=== PATIENT | female | born 1935 | race Caucasian/White ===

== ENCOUNTER → 2019-01-04 | Outpatient (REF) | payer MEDICARE ==
[~2019-01-04] MED LIST: ADVAIR DISK1 IN; ALBUTEROL S2.5 MG/.5 IN; AMLODIPINE10 MG PO; AMLODIPINE2.5 MG PO; AMLODIPINE5 MG PO; AMOXICILLIN/PO500 MG OR; ASPIRIN 8181 MG PO; ASPIRIN325 MG PO; ATORVASTATI80 MG/TAB PO; AUGMENTIN875TAB PO; AZITHROMYCIN250 MG PO; BL ADULT ASA81 MG PO; BYSTOLIC10 MG; BYSTOLIC10 MG OR; BYSTOLIC20 MG PO; CALCIUM600 M1 PO; CENTRUM; CENTRUM CARDIO PO; CENTRUM OR; CHLORTHALID25 MG PO; CLARITIN10 MG PO; COMBIVENT IN; CRANBERRY500 MG OR; CRANBERRY500 MG PO; CRESTOR20 MG; CRESTOR20 MG PO; CYANOCOBALAM1000 MCG IJ; ENALAPRIL10 MG; ENALAPRIL10 MG PO; FLAXSEED OIL1200 MG OR; FLUARIX QUADRIV1 IN1 IM; FLUARIX QUADRIV1 INJ IM; FLUTICASONE50 MCG; FLUZONE SPLT1 M1 IM; FLUZONE1 M1 IM; FUROSEMIDE20 MG PO; GLUTAMINE500 MG OR; HYDROCHLOR12.5 MG/CA PO; HYDROCHLOROT12.5 MG PO; HYDROCHLOROTH12.5 MG PO; ISOSORB MONO30 MG OR; ISOSORB MONO30 MG PO; KLOR-CON M2020 MEQ PO; KLS OMEPRAZOLE20 MG PO; L-CARNITINE500 M1 OR; LISINOPRIL10 MG PO; LOVAZA1 GM OR; MEDDOSEPAK PO; MELOXICAM7.5 MG PO; MYLANT1 OR; NIFEDICAL XL60 MG OR; NIFEDIPINE60 M1 PO; OMEGA 31000 MG PO; OMEPRAZOLE20 MG PO; OSTEO BI-FL1 PO; OSTEO BI-FLE OR; PLAVIX75 MG PO; PREMARIN0.3 MG PO; PROAIR HFA IN; SPIRIVA IN; TEKTURNA300 MG OR; TEKTURNA300 MG PO; TRIAMCINOLON0.11 EX; VASOTEC10 MG PO; VITAMIN B-121000 MC1 SL; VITAMIN D2000 UNIT OR; VITAMIN D31000 UNI1 OR; ZITHROMAX500 MG PO; ZOCOR20 M1 PO; ZOSTAVAX IM; [UNRECOGNIZED DRUG - OTHER] OR; [UNRECOGNIZED DRUG - OTHER] PO; [UNRECOGNIZED DRUG - OTHER] PO
== END | disposition home or self-care (01) ==
LOC: DI 12:15
PROVIDERS: ATTEND Nurse Practitioner Family
DX: J44.1 Chronic obstructive pulmonary disease with (acute) exacerbation (principal)

== ENCOUNTER 2020-10-15 11:10 | Inpatient (IN) | payer MEDICARE ==
[~2020-10-15] VITALS: Ht 162.6 cm; Wt 64.1 kg
--- NOTE | 2020-10-15 11:20 | NUR ---
PATIENT TO ROOM VIA WHEELCHAIR FOR BEDSIDE TRIAGE.
--- NOTE | 2020-10-15 11:21 | NUR ---
BEDSIDE TRIAGE COMPLETED. PT CHANGED INTO GOWN.
[2020-10-15 12:02] LABS: HEMATOCRIT 47.3 % (37.0-47.0); HEMOGLOBIN 15.3 g/dl (12.0-16.0); IMMATURE GRANULOCYTES 0.4 % (0.0-5.0); MEAN CELL VOLUME 96.9 fL CALC (80.0-100.0); MEAN CORPUSCULAR HGB 31.4 pG CALC (26.0-32.0); MEAN CORPUSCULAR HGB CONC 32.3 g/dL CAL (32.0-36.0); NEUT# 6.06 thou/uL (2.00-7.15); RED BLOOD COUNT 4.88 mill/uL (4.20-5.60); RED CELL DISTRI WIDTH 12.5 % (11.5-15.5)
[2020-10-15 12:22] LABS: ALBUMIN 4.4 g/dL (3.2-5.0); BILIRUBIN, TOTAL 0.7 mg/dL (0.0-1.4)
[2020-10-15 12:23] LABS: CREATININE 2.1 mg/dL (0.5-1.0); POTASSIUM 3.9 mmol/l (3.5-5.1)
--- NOTE | 2020-10-15 12:23 | NUR ---
PT RETURNS FROM RADIOLOGY. PLACED ON STOCK SAW OPERATOR. ADVISED OF CONT WAIT TIME FOR RESULTS. VERBALIZED UNDERSTANDIGN. DENIES ANY NEEDS. BEDSIDE.
[2020-10-15] MEDS ORDERED: ATORVASTATIN CA40 MG PO (12:56)
[2020-10-15] MEDS ORDERED: ISOSORB MONO30 MG PO (12:57)
[2020-10-15] MEDS ORDERED: NIFEDIPINE60 MG PO (12:57)
[2020-10-15] MEDS ORDERED: SPIRONOLACTONE25 MG PO (12:58)
[2020-10-15] MEDS ORDERED: PROAIR HFA108 MCG/AC IN (12:59)
[2020-10-15] MEDS ORDERED: ANORO ELLIPTA 61 AER IN (12:59)
[2020-10-15] MEDS ORDERED: LISINOPRIL20 MG PO (13:00)
[2020-10-15] MEDS ORDERED: [UNRECOGNIZED DRUG - OTHER] PO (13:01)
[2020-10-15] MEDS ORDERED: VITAMIN B-12500 MCG PO (13:01)
[2020-10-15] MEDS ORDERED: MAG OXIDE400 MG PO (13:02)
[2020-10-15] MEDS ORDERED: PRIMROSE OI1 PO (13:02)
[2020-10-15] MEDS ORDERED: CLONIDINE0.1 MG PO (13:03)
--- NOTE | 2020-10-15 13:25 | NUR ---
PT RESTING ON STRETCHER IN NAD. RESP EVEN AND UNLABORED. SKIN WARM AND DRY. WEB ART DIRECTOR IN PLACE. VERBALIZES NO NEEDS AT THIS TIME. CALL LIGHT WITHIN REACH. BEDSIDE.
--- NOTE | 2020-10-15 13:39 | NUR ---
DR RAHMAN IN ROOM SPEAKING WITH PT AND
--- NOTE | 2020-10-15 13:57 | NUR ---
REPORT GIVEN TO ARIADNE KNOWLES ON MED SURGE. REQUESTED IF BP MEDICATION COULD BE GIVEN FOR BP 186/89. DR LUZ CONTACTED AND VERBAL ORDER FOR LABETALOL 10 MG IVP Q6H PRN HTN GIVEN.
--- NOTE | 2020-10-15 14:23 | NUR ---
PT MEDICATED FOR BLOOD PRESSURE PER DR LUZ ORDER. TOLERATED ADMINISTRATION WELL. ADVISED OF CONT WAIT TIME FOR ADMISSION TO FLOOR. VERALIZED UNDERSTANDING. DENIES ANY NEEDS. CALL LIGHT WITHIN REACH.
--- NOTE | 2020-10-15 15:00 | NUR ---
Admission Note Report Given to: ARIADNE KNOWLES Transported by: Wheelchair X Stretcher Transported with: C Nurse Transporter X Patent IV O2 X Welding Machine Operator Electron Beam Location: ICU X MS2
[2020-10-15 15:03] VITALS: BP 150/70
--- NOTE | 2020-10-15 15:03 | NUR ---
RECEIVED PATIENT AT THIS TIME FROM ER NURSE TATUM. PATIENT ALERT AND ORIENTED X 3. PATIENT ORIENTED TO ROOM AND AIRBORNE PRECAUTIONS AT THIS TIME. PATIENT C/0 SHORTNESS OF BREATH. PATIENT PLACED ON O2 AT 2L N/C AT THIS TIME AND SPO2 IS 91%. PATIENT DENIES ANY PAIN AND WAS ASSISTED TO BEDSIDE COMMODE WHERE PATIENT VOIDED 400ML OF CLEAR YELLOW URINE AND UA OBTAINED AND SENT TO LAB. PATIENT EXHIBITS NON PRODUCTIVE COUGH AND DENIES ANY NAUSEA OR VOMITTING. CALL LIGHT WITHIN REACH AND SIDERAILS UP X 2.
[2020-10-15 15:10] VITALS: BP 150/70
--- NOTE | 2020-10-15 15:14 | NUR ---
REPORT GIVEN TO ARIADNE KNOWLES ON MS. REQUESTED IF BP MED COULD BE GIVEN PRIOR TO TRANSPORT. DR LUZ CONTACTED AND VERBAL ORDER FOR LAETALOL RECEIVED.
[2020-10-15 16:03] LABS: URINE BILIRUBIN - DIPSTICK NEGATIVE (NEGATIVE); URINE BLOOD DIPSTICK SMALL (NEGATIVE); URINE COLOR YELLOW; URINE GLUCOSE - DIPSTICK NEGATIVE (NEGATIVE); URINE KETONE TRACE mg/dL (NEGATIVE); URINE LEUK ESTERASE TRACE (NEGATIVE); URINE NITRITE - DIPSTICK NEGATIVE (Negative); URINE PH 5.5 (4.5-8.0); URINE PROTEIN - DIPSTICK 30 mg/dL (NEG-TRACE); URINE SPECIFIC GRAVITY >=1.030; URINE UROBILINOGEN - DIPSTICK 0.2 E.U./dL (0.2)
[2020-10-15 16:16] LABS: URINE SQUAMOUS EPITHELIAL CELL FEW EPI/hpf (0-FEW)
[2020-10-15 19:05] VITALS: BP 148/56
--- NOTE | 2020-10-15 19:28 | NUR ---
PT APPEARS TO BE SLEEPING, NO S/O DISTRESS NOTED. CALL LIGHT AT SIDE.
--- NOTE | 2020-10-15 21:13 | NUR ---
PT MEDICATED ORDERS PROVIDE, ASSESSMENT COMPLETED AT THIS TIME. PT DENIES N/V/D OR SOB AT THIS TIME. NO S/O DISTRESS NOTED. REORIENTED PT TO CALL SYSTEM AND ENCOURAGED HER TO CALL ANY NEEDS ARISE.
[2020-10-16 00:05] VITALS: BP 154/66
[2020-10-16 04:10] VITALS: BP 114/71
--- NOTE | 2020-10-16 04:45 | NUR ---
PT FOUND IN THE BED, COLD, WET WITH URINE. IV HAD BEEN PULLED. PT AMBULATED TO RESTROOM WITH 2X STANDBY ASSISTANCE, LOC TO CIRCUMSTANCE AND PLACE/SELF, BUT SEEMS CONFUSED ABOUT USING CALL SYSTEM. PT CLEANED OF INCONTINENTE URINE AND STOOL, BEDDING REPLACED AND PT ASSISTED BACK TO BED. PT IS VERY COLD, WARMER BLANKETS PROVIDED FOR COMFORT TO GET HER WARMED BACK UP. ALLOWING PT TO WARM PRIOR TO ACCESSING NEW IV SITE, UNABLE TO LOCATE SITE TO ACCESS AT THIS TIME. WILL FOLLOW-UP.
[2020-10-16 07:57] LABS: HEMATOCRIT 42.4 % (37.0-47.0); HEMOGLOBIN 13.9 g/dl (12.0-16.0); IMMATURE GRANULOCYTES 0.5 % (0.0-5.0); MEAN CELL VOLUME 95.1 fL CALC (80.0-100.0); MEAN CORPUSCULAR HGB 31.2 pG CALC (26.0-32.0); MEAN CORPUSCULAR HGB CONC 32.8 g/dL CAL (32.0-36.0); NEUT# 5.19 thou/uL (2.00-7.15); RED BLOOD COUNT 4.46 mill/uL (4.20-5.60); RED CELL DISTRI WIDTH 12.2 % (11.5-15.5)
[2020-10-16 08:20] LABS: ALBUMIN 3.6 g/dL (3.2-5.0); ALKALINE PHOSPHATASE 28 u/l (38-126); BILIRUBIN, TOTAL 0.6 mg/dL (0.0-1.4); C-REACTIVE PROTEIN 4.1 mg/dL (0-0.9); CHLORIDE 101 mmol/l (95-108); POTASSIUM 3.3 mmol/l (3.5-5.1); SGOT/AST 81 u/l (9-36); SODIUM 135 mmol/l (137-146)
[2020-10-16 08:21] LABS: ANION GAP 8 (6-22 (CALC)); BUN 32 mg/dL (8-23); BUN/CREATININE RATIO 36 (12-20 (CALC)); CARBON DIOXIDE 29 mmol/l (22-30); CREATININE 0.9 mg/dL (0.5-1.0); GFR 60 ML/MIN (>=60 (CALC)); GFR FOR AFR.AMER. > 60 ML/MIN (>=60 (CALC)); TOTAL PROTEIN 6.2 g/dL (6.3-8.2)
[2020-10-16 08:52] VITALS: BP 142/70
--- NOTE | 2020-10-16 08:52 | NUR ---
RECIEVED REPORT FROM ELENI DENISE. PT RESTING IN LOW FOWLERS POSITION WITH LEGS HANGING OFF BED. INTRODUCED SELF TO PT AND DISCUSSED POC. SHAREPOINT APPLICATION ARCHITECT ASSISTED PT WITH STRAITENING OUT IN BED. PT IS A/O X3 BUT APPEARS TO BE CONFUSED. ASSESSMENT AND VITALS COMPLETED. RESPIRATIONS ARE EVEN AND UNLABORED ON ROOM AIR. OXYGEN SAT 92% ON ROOM AIR. 2L NC AT BEDSIDE PRN. ENCOURAGED PT TO APPLY IF NEED. PT VERBALIZED UNDERSTANDING. HEART RHYTHM IS NORMAL WITH TELE IN PLACE, SR PER ER MONITORING. BOWEL SOUNDS ARE ACTIVE IN ALL QUADRANTS, LAST REPORTED BM 10/16/2020. RADIAL AND PEDAL PULSES STRONG. #22G STARTED IN LAC, SITE APPEARS HEALTHY AND PATENT. NORMAL SALINE STARTED AT 100 ML/HR PER ORDERED. PT DENIES OF ANY PAINS OR DISCOMFORTS. ALL SAFETY AND ISOLATION PRECAUTIONS ARE IN PLACE WITH CALL LIGHT IN REACH.MONITORING IN PLACE. WILL CONTINUE TO MONITOR
--- NOTE | 2020-10-16 09:58 | NUR ---
DR LUZ AT BEDSIDE
--- NOTE | 2020-10-16 10:00 | NUR ---
EAR NOSE THROAT PHYSICIAN NOTFIED BY TELE MONITORING THAT PT PRESENTS WITH INCREASED PVCS. PT RESTING IN SEMI FOWLERS POSITION. VITALS OBTAINED. PT REAMINS ASYMPTOMATIC. STRIPS PRESENTED TO DR LUZ. EKG ORDERED. ALL SFAETY PRECAUTIONS ARE IN PLACE WITH CALL LIGHT IN REACH. WILL CONTINUE TO MONITOR
[2020-10-16 10:30] VITALS: BP 148/77
--- NOTE | 2020-10-16 10:30 | NUR ---
RT AT BEDSIDE COMPLETING EKG.
--- NOTE | 2020-10-16 12:15 | NUR ---
PT RESTING IN SEMI FOWLERS POSITION. RESPIRATIONS ARE EVEN AND UNLABORED ON 2L NC. IVF INFUSING PER ORDER, SITE APPEARS HEALTHY AND PATENT.TELE MONITORING IN PLACE. PT DENIES OF ANY PAINS OR DISCOMFORTS. ALL SAFETY AND ISOLATION PRECAUTIONS AR EIN PLACE WITH CALL LIGHT IN REACH. WILL CONTINUE TO MONITOR
--- NOTE | 2020-10-16 13:03 | NUR ---
REASSESSMENT OF TEMP RESULTING IN 97.8
--- NOTE | 2020-10-16 13:05 | NUR ---
SON OF PT CALLED ASKING FOR UPDATE. PERMISSION FROM PT TO GIVEN CODE. SON STATES THAT" FAMILY HAS NOT BEEN INFORMED OF PT STATUS NOT EVEN HER ." ATTEMPTED TO CALL FOR UPDATE. NO ANSWER.
--- NOTE | 2020-10-16 15:40 | NUR ---
CN AT BEDSIDE ASSISTING PT WITH BED BATH. RESPIRATIONS REMAINS EVEN AND UNLABORED ON 2L NC. IVF INFUSING PER ORDER, SITE APPEARS HEALTHY AND PATENT. PT DENIES OF ANY PAINS OR DISCOMFORTS. ALL SAFETY AND ISOLATION PRECAUTIONS ARE IN PLACE WITH CALL LIGHT IN REACH. WILL CONTINUE TO MONITOR
[2020-10-16 15:56] VITALS: BP 101/61
[2020-10-16 19:00] VITALS: BP 102/53
--- NOTE | 2020-10-16 20:10 | NUR ---
PT LAYING IN BED WITH EYES CLOSED, APPEARS TO BE SLEEPING COMFORTABLY, RESPIRATIONS REGULAR AND UNLABORED, NO APPARENT DISTRESS. WAKES EASILY TO VERBAL STIMULI. PHYSICAL ASSESMENT COMPLETED. SCHEDULED MEDICATION ADMINISTERED, SEE E-MAR. IV PATENT AND INFUSING NS @ 100ML/H. PLAN OF CARE REVIEWED. PT VERBALIZES UNDERSTAND AND DENIES QUESTIONS. PT DENIES NEEDS AT THIS TIME. CALL ZHENG WITHIN REACH, AGREES TO CALL PRN.
--- NOTE | 2020-10-16 23:56 | NUR ---
PT LAYING IN BED WITH EYES CLOSED, NO APPARENT DISTRESS, APPEARS TO BE SLEEPING COMFORTABLY. RESPIRATIONS REGULAR AND UNLABORED. CALL ZHENG REMAINS WITHIN REACH.
[2020-10-17] VITALS: BP 106/53
[2020-10-17 04:00] VITALS: BP 106/53; BP 122/59
--- NOTE | 2020-10-17 04:30 | NUR ---
PT LAYING IN BED WITH EYES CLOSED, NO APPARENT DISTRESS, APPEARS TO BE SLEEPING COMFORTABLY. RESPIRATIONS REGULAR AND UNLABORED. CALL ZHENG REMAINS WITHIN REACH.
[2020-10-17 07:56] VITALS: BP 123/62
[2020-10-17 10:55] VITALS: BP 107/49
--- NOTE | 2020-10-17 11:51 | NUR ---
PT IS SEEN ALERT, ORIENTED X 2-3. SHE IS OFTEN CONFUSED, AWARE THAT SHE IS IN HOSPITAL, BUT UNAWARE OF TIME. NO DISTRESS NOTED, LUNGS CLEAR, 2 LPM.
[2020-10-17 11:55] LABS: HEMOGLOBIN 12.5 g/dl (12.0-16.0); IMMATURE GRANULOCYTES 0.8 % (0.0-5.0); MEAN CELL VOLUME 95.5 fL CALC (80.0-100.0); MEAN CORPUSCULAR HGB 31.4 pG CALC (26.0-32.0); MEAN CORPUSCULAR HGB CONC 32.9 g/dL CAL (32.0-36.0); NEUT# 9.75 thou/uL (2.00-7.15); RED BLOOD COUNT 3.98 mill/uL (4.20-5.60)
[2020-10-17 12:24] LABS: ALBUMIN 3.1 g/dL (3.2-5.0); ALKALINE PHOSPHATASE 25 u/l (38-126); ANION GAP 9 (6-22 (CALC)); BILIRUBIN, TOTAL 0.4 mg/dL (0.0-1.4); BUN 34 mg/dL (8-23); BUN/CREATININE RATIO 38 (12-20 (CALC)); CARBON DIOXIDE 25 mmol/l (22-30); CHLORIDE 107 mmol/l (95-108); CREATININE 0.9 mg/dL (0.5-1.0); GFR 60 ML/MIN (>=60 (CALC)); GFR FOR AFR.AMER. > 60 ML/MIN (>=60 (CALC)); POTASSIUM 3.7 mmol/l (3.5-5.1); SGOT/AST 55 u/l (9-36); SODIUM 137 mmol/l (137-146); TOTAL PROTEIN 5.6 g/dL (6.3-8.2)
--- NOTE | 2020-10-17 13:38 | NUR ---
PT SEEN AT REST IN BED, NO DISTRESS, NO COMPLAINTS.
[2020-10-17 15:05] VITALS: BP 117/53
--- NOTE | 2020-10-17 17:59 | NUR ---
PT RESTS IN THE BED, NO DISTRESS, NO CHANGE IN STATUS, PLEASANT AND COURTEOUS.
[2020-10-17 19:25] VITALS: BP 111/45
[2020-10-18] VITALS (18 sets, daily range): BP systolic 98–170; BP diastolic 49–87
[2020-10-18 05:21] LABS: HEMATOCRIT 40.3 % (37.0-47.0); HEMOGLOBIN 13.2 g/dl (12.0-16.0); IMMATURE GRANULOCYTES 0.9 % (0.0-5.0); MEAN CELL VOLUME 94.2 fL CALC (80.0-100.0); MEAN CORPUSCULAR HGB 30.8 pG CALC (26.0-32.0); MEAN CORPUSCULAR HGB CONC 32.8 g/dL CAL (32.0-36.0); NEUT# 11.25 thou/uL (2.00-7.15); RED BLOOD COUNT 4.28 mill/uL (4.20-5.60); RED CELL DISTRI WIDTH 12.2 % (11.5-15.5)
[2020-10-18 05:36] LABS: ALBUMIN 3.3 g/dL (3.2-5.0); ALKALINE PHOSPHATASE 28 u/l (38-126); ANION GAP 7 (6-22 (CALC)); BILIRUBIN, TOTAL 0.4 mg/dL (0.0-1.4); BUN 30 mg/dL (8-23); BUN/CREATININE RATIO 34 (12-20 (CALC)); C-REACTIVE PROTEIN 2.5 mg/dL (0-0.9); CARBON DIOXIDE 29 mmol/l (22-30); CHLORIDE 106 mmol/l (95-108); CREATININE 0.9 mg/dL (0.5-1.0); GFR 60 ML/MIN (>=60 (CALC)); GFR FOR AFR.AMER. > 60 ML/MIN (>=60 (CALC)); SGOT/AST 53 u/l (9-36); SODIUM 139 mmol/l (137-146); TOTAL PROTEIN 5.9 g/dL (6.3-8.2)
--- NOTE | 2020-10-18 09:00 | NUR ---
PT SEEN AWAKE, ALERT, ORIENTED X 2-3. LUNGS CLEAR, RA. PT AMBULATORY IN ROOM, INVESTIGATES EVERYTHING IN ROOM. NO DISTRESS, NO COMPLAINTS.
--- NOTE | 2020-10-18 12:15 | NUR ---
PT SEEN IN ROOM WITH LEADS OFF, REPLACED. PT DID NOT SAY THAT SHE IS SHORT OF BREATH OR THAT SHE FEELS PALPITATIONS. RAPID RESPONSE CALLED BY ER, PT PLACED ON LOCAL MONITOR, SEEN AFIB RVR. DR AMAYA AT BEDSIDE.
--- NOTE | 2020-10-18 12:18 | NUR ---
OIL SPRAYING MACHINE OPERATOR CALLED OVERHEAD BY BROOKE GLORIA IN ER FOR ELEVATED HEART RATE IN THE 200S.
--- NOTE | 2020-10-18 12:35 | NUR ---
DR. AMAYA AT BEDSIDE; IV STARTED AND LABS OBTAINED AND SENT TO LAB. NEW ORDERS RECEIVED FOR CARDIAZEM IVP AND CARDIZEM GTT PRN. CTA CHEST. DR. LUZ NOTIFIED. MANUFACTURING PROCESS ENGINEER ALSO AT BEDSIDE.
--- NOTE | 2020-10-18 13:23 | NUR ---
PT TRANSPORTED TO RADIOLOGY VIA BED WITH [facility] NURSE AND GLASS CUTTING MACHINE FEEDER; PT IN STABLE CONDITION AND ON PRINTED CIRCUIT BOARDS BEVELER AND OXYGEN DURING TRANSPORT. CURRENTLY IN CT FOR CTA OF CHEST.
--- NOTE | 2020-10-18 13:40 | NUR ---
ARRIVED TO ICU UNIT ROOM 4 FROM RADIOLOGY VIA BED; RESTING SEMI FOWLERS ALERT AND ORIENTED. DENIES PAIN. RESPIRATIONS EVEN AND UNLABORED ON OXYGEN 2L VIA NC; RR 24. LUNGS ARE CLEAR WITH WHEEZING TO RIGHT LOWER LOBE. 20G IV SITE TO RAC; CARDIZEM GTT INFUSING AT 15 MG/HR AND NS AT KVO; IV SITE APPEARS HEALTHY. PT STABLE; TALKING AND LAUGHING. ORIENTED TO NEW ROOM AND CALL LIGHT SYSTEM. PLAN OF CARE REVIEWED. PT ENCOURAGED TO VERBALIZE CONCERNS. STATES UNDERSTANDING. SAFETY MEASURES IN PLACE. CALL LIGHT WITHIN REACH.
--- NOTE | 2020-10-18 14:30 | NUR ---
SITTING UP IN BED TALKING TO SON ON PHONE. SON UPDATED ON PT TRANPORT FROM [facility] TO ICU AND CONDITION.
[2020-10-18 16:27] LABS: MAGNESIUM 1.8 mg/dL (1.6-2.3)
--- NOTE | 2020-10-18 17:18 | NUR ---
ROCEPHIN INFUING AT THIS TIME. CARDIZEM CONTINUES TO INFUSE AT 15 MG/HR. BLOOD PRESSURE STABLE AT 123/69. HR 114-123.
--- NOTE | 2020-10-18 17:54 | NUR ---
PT SITTING UP EATING DINNER; ATE 75%. ALTHOUGH ALERT AND ORIENTED X 3; PT DOES SEEM CONFUSED ASKING WHICH RESTRAUNT MADE THE FOOD AND WAS SUPRISED THAT IT WAS THE CAFETERIA ASKING, "AND THEY'RE ON THE PREMESIS??" ZITHROMAX NOW INFUSING. OXYGEN TITRATED UP TO 3L DUE TO SPO2 DECREASING TO 89% WHILE EATING. SAFETY MEASURES IN PLACE INCLUDING OPEN CURTAIN FOR GOOD PATIENT VISUALIZATION.
--- NOTE | 2020-10-18 18:57 | NUR ---
PATIENT'S MYRIAM CALLED HERE FOR UPDATES, UPDATES GIVEN.
--- NOTE | 2020-10-18 19:10 | NUR ---
PATIENT IS ALERT AND ORIENTED X3, SHE DOES HAVE CONFUSION, NEEDS VERBAL CEUING AND REPETETION WITH DIRECTIONS AND EXPLANATION OF POC. O2 TITRATED FROM 3 L/MIN TO 4 L/MIN, O2 SAT 90%-91%. PATIENT DOES BECOME SOB WITH EXERTION, I ENCOURAGED PURSED LIP BREATHING BUT SHE DOES NOT FOLLOW DIRECTIONS VERY WELL. I ENCOURAGED PRONE POSITION, SHE REFUSES AT THIS TIME, STATES, "I USED TO SLEEP ON MY BELLY." I ASSISTED WITH TRANSFER TO [facility], VOIDS 200 ML CLEAR/YELLOW URINE NOTED. HR WITH EXERTION 130'S-140'S AFIB, WHEN RESTING LOW 100'S AFIB. SHE IS ON A CARDZIEM DRIP AT 15MG/HR, NS AT 100 ML/HR TO A RAC 20 G IV WHICH IS INTACT. NURSE ASSESSMENT PERFORMED. POC DISCUSSED. TEMP 99.7. WILL CONTINUE TO MONITOR. HOB AT 45 DEGREES. CALL LIGHT WITHIN REACH.
--- NOTE | 2020-10-18 21:46 | NUR ---
PATIENT ABLE TO TOLERATE HEPARIN INJECTION. NO NEEDS OR COMPLAINTS AT THIS TIME. O2 SAT 93%, NO SOB NOTED. HR RANGES 90'S TO 113 BPM. BP 130'S SYTOLIC.
--- NOTE | 2020-10-18 23:41 | NUR ---
PATIENT RESTS WITH HOB 30 DEGREES, IS AWAKE. NO ACUTE DISTRESS SHOWN. CALL LIGHT WITHIN REACH.
[2020-10-19] VITALS (21 sets, daily range): BP systolic 104–163; BP diastolic 55–101
--- NOTE | 2020-10-19 00:04 | NUR ---
PATIENT SITS UP AT THE SIDE OF THE BED, ASSISTED TO BSC, BECOMES SOB WITH EXERTION, WHEN BACK IN BED, O2 SAT READS 85%,. HOB IN HIGH LEON'S. TYLENOL GIVEN FOR TEMP OF 99.2. WILL CONTINUE TO MONITOR.
--- NOTE | 2020-10-19 01:25 | NUR ---
NEW BAG OF NS INFUSING NOW. PATIENT IS AWAKE. NO AACUTE DISTRESS SHOWN. NO COMPLAINTS OR NEEDS AT THIS TIME. AFEBRILE. CARDIZEM DRIP WEANED TO 10 MG/HR, HR 90'S.
--- NOTE | 2020-10-19 04:05 | NUR ---
PATIENT SITS ON SIDE OF THE BED. DOES NOT NEED TO USE BSC, SHE STAES, "DO YOU SEE WHAT'S OUTSIDE, THE ESCUDERO IS BIG TONIGHT." PATIENT NOW LAYS BACK IN BED. SHE DOES BECOME SOB WITH EXERTION, ON 4 L/MIN NC, O2 SAT BETWEEN 90%-93%. CALL LIGHT WITHIN REACH.
--- NOTE | 2020-10-19 05:10 | NUR ---
PATIENT TAKES OFF HER PULSE OXIMETER, PATIENT WAS REORIENTED AND NEW PULSE OX PLACED BACK ON.
[2020-10-19 05:59] LABS: HEMATOCRIT 41.7 % (37.0-47.0); HEMOGLOBIN 13.7 g/dl (12.0-16.0); IMMATURE GRANULOCYTES 0.7 % (0.0-5.0); MEAN CELL VOLUME 94.8 fL CALC (80.0-100.0); MEAN CORPUSCULAR HGB 31.1 pG CALC (26.0-32.0); MEAN CORPUSCULAR HGB CONC 32.9 g/dL CAL (32.0-36.0); NEUT# 10.85 thou/uL (2.00-7.15); RED BLOOD COUNT 4.4 mill/uL (4.20-5.60); RED CELL DISTRI WIDTH 12.2 % (11.5-15.5)
[2020-10-19 06:23] LABS: ALBUMIN 3.5 g/dL (3.2-5.0); ALKALINE PHOSPHATASE 28 u/l (38-126); BUN 36 mg/dL (8-23); BUN/CREATININE RATIO 39 (12-20 (CALC)); C-REACTIVE PROTEIN 5.3 mg/dL (0-0.9); CHLORIDE 111 mmol/l (95-108); CREATININE 0.9 mg/dL (0.5-1.0); GFR 60 ML/MIN (>=60 (CALC)); GFR FOR AFR.AMER. > 60 ML/MIN (>=60 (CALC)); POTASSIUM 4.2 mmol/l (3.5-5.1); SGOT/AST 76 u/l (9-36); SODIUM 141 mmol/l (137-146); TOTAL PROTEIN 6.2 g/dL (6.3-8.2)
[2020-10-19 06:26] LABS: ANION GAP 12 (6-22 (CALC)); BILIRUBIN, TOTAL 0.6 mg/dL (0.0-1.4); CARBON DIOXIDE 22 mmol/l (22-30)
--- NOTE | 2020-10-19 07:01 | NUR ---
REPORT RECEIVED FROM ELENI HAMEED. PT RESTING IN BED SEMI FOWLERS; ALERT AND ORIENTED. DENIES PAIN. RESPIRATIONS EVEN AND UNLABORED ON OXYGEN 4L. ON CHILD AND ADOLESCENT THERAPIST PT IS NOW NORMAL SINUS RHYTHM; CARDIZEM DRIP DISCONTINUED. NS CONTINUES AT 100 ML/HR PER ORDER; 20G IV TO RAC APPEARS HEALTHY. PLAN OF CARE REVIEWED. PT ENCOURAGED TO VERBALIZE CONCERNS. STATES UNDERSTANDING. SAFETY MEASURES IN PLACE. CALL LIGHT WITHIN REACH.
--- NOTE | 2020-10-19 07:05 | NUR ---
Patient is screened for PT intervention and may benefit from pulmonary chest PT and funcitonal mobilization if medical agrees
--- NOTE | 2020-10-19 07:27 | NUR ---
RT AT BEDSIDE FOR EKG.
--- NOTE | 2020-10-19 08:00 | NUR ---
DR. LUZ AND RISHABH CATES AT BEDSIDE FOR EVAL. NEW ORDERS RECEIVED.
--- NOTE | 2020-10-19 08:30 | NUR ---
PT UP TO BSC TO VOID. BRUSHED TEETH INDEPENDENTLY, LINENES CHANGED, AND ASSISTED WITH PARTIAL BATH. REPOSITIONED BACK INTO BED SEMI FOWLERS.
--- NOTE | 2020-10-19 09:19 | NUR ---
MORNING MEDICATIONS GIVEN INCLUDING LOVENOX. NOW SITTING UP TALKING TO ON UNITS PORTABLE PHONE.
--- NOTE | 2020-10-19 09:46 | NUR ---
PT MAKES INAPPROPRIATE COMMENTS AT TIMES INDICATING DISORIENTATION, HOWEVER, PT IS ABLE TO STATE HER NAME, , YEAR, AND THAT SHE IS IN THE HOSPITAL IN [facility]. WHILE SPEAKING WITH ON PHONE SHE DENIES TO HIM THAT SHE IS IN ICU. PT REORIENTED.
[2020-10-19] MEDS ORDERED: SPIRIVA RE1.25 MCG/A IN (10:24)
--- NOTE | 2020-10-19 12:15 | NUR ---
PT EATING MINIMAL LUNCH STATING THAT SHE ONLY WANTS HER FRUIT CUP. ENSURE TID ADDED TO DIET PER DIETITION RECOMMENDATION. OXYGEN TITRATED UP TO 5L VIA NC FOR SPO2 DECREASING TO 88%. PT GETS VERY SOB WITH MINIMAL EXERTION.
--- NOTE | 2020-10-19 12:47 | NUR ---
OXYGEN NOW AT 6L; PT REPORTS MILD SOB, BUT THEN STATES SHE ALWAYS FEELS SLIGHTLY SOB. OXYGEN PROB REPLACED ON ANOTHER FINGER. INCENTIVE SPIROMETER GIVEN TO PT AND EDUCATED ON DEEP BREATHING; PT GAVE RETURN DEMONSTRATION GOING TO 1250 ON IS. WILL CONTINUE TO MONITOR.
--- NOTE | 2020-10-19 13:21 | NUR ---
SPO2 88-90% ON 6L WHILE AT REST. PT TAKING DEEP BREATHS WITH ENCOURAGEMENT. APPLIED HIGH FLOW HUMIDIFIED OXYGEN TUBING AT 8L; SPO2 CURRENTLY MAINTAINING AT 92%. SINUS RHYTHM WITH PAC'S AND OCCASIONAL PVC'S ON ROLLER CHECKER. PT HAS NO REQUESTS OR CONCERNS AT THIS TIME. CALL LIGHT WITHIN REACH.
--- NOTE | 2020-10-19 13:51 | NUR ---
REMDESIVIR INFUSING AT THIS TIME; IV SITE APPEARS HEALTHY. PT'S WINDOW BLINDS ARE OPEN AND SHE STATES, "I WONDER WHOS LETTING THOSE KIDS SWING FROM THOSE BRANCHES." FROM 2ND FLOOR ONLY TREE TOPS CAN BE SEEN WITH NO ONE SEEN BY NURSE. PT IS MAINTAINING 92-93% SPO2 ON 8L OF OXYGEN. SHE IS UNABLE TO ANSWER QUESTIONS REGARDING HER ADVANCED DIRECTIVES. RESTING IN BED AWAKE AND LOOKING AROUND ROOM. CONTINUES TO DENY PAIN. PT ALSO REPORTS YELLOW SPUTUM TODAY WITH HER COUGH THAT IS NEW.
--- NOTE | 2020-10-19 15:01 | NUR ---
PT RESTING IN BED WITH EYES CLOSED AND NO SIGNS OF DISTRESS. WAKES UP AND USES IS WITHOUT ENCOURAGEMENT.
--- NOTE | 2020-10-19 15:51 | NUR ---
UP TO BSC FOR VOID; PT IS WEAKER THAN THIS MORNING AND VERY SOB WITH EXERTION EVEN WITH 8L OF OXYGEN. VENTOLIN INHALER GIVEN. PT BACK IN BED RESTING SEMI FOWLERS WITH DIFFICULT PURSED LIP BREATHING; SPO2 DECREASED TO 77%; RR 40. OXYGEN TITRATED UP TO 10L AND BREATHING TECHNIQUES ENCOURAGED. PT IS ANXIOUS, BUT COOPERATIVE WITH BREATHING. WHILE ON BSC PT STATES, "I WAS WATCHING THE ANGLES THERE IN THE [place]. THEY WERE KISSING AND BEING ROMANTIC." SPO2 NOW 90%. PT CLOSELY MONITORED.
--- NOTE | 2020-10-19 16:22 | NUR ---
RT AT BEDSIDE FOR ABG. CALLED AND NOTIFIED OF INCREASED OXYGEN DEMAND AND GENERAL DECLINE IN PATIENTS CONDITION; QUESTIONS ANSWERED TO SATISFACTION. MYRIAM MILLS, STATES, "OK WHATEVER YOU NEED TO DO." SON, LORETA, ALSO UPDATED.
--- NOTE | 2020-10-19 16:29 | NUR ---
PT PULLED UP IN BED X 2 PERSON ASSIST; OXYGEN TITRATED UP TO 12L HIGH FLOW NC. PT IS ANXIOUS WITH SHALLOW BREATHING AT 28 BREATHS PER MINUTES. SHE IS NOW WHEEZING THROUGHOUT ALL LOBES. SINUS TACH WITH PACS AND PVCS AT 108.
--- NOTE | 2020-10-19 16:52 | NUR ---
NEW ORDER RECEIVED; ATIVAN GIVEN FOR ANXIETY. BRADY RODRIGUEZ AT BEDSIDE FOR EVAL.
--- NOTE | 2020-10-19 18:10 | NUR ---
PT IS RESTLESS AND REMOVED TELEMETRY LEADS AND OXYGEN PROB FROM FINGER. PT REDIRECTED AND INSTRUCTED TO LEAVE ATTACHMENTS IN PLACE. PT SLIGHTLY AGITATED AND CONTINUES TO FIDGET WITH WIRES AND REMOVE BLANKETS. ATTACHMENTS REPLACED. VERY CONFUSED AND NOW IS ATTEMPTING TO GET OUT OF BED. WHEN ASKED IF SHE HAS ANY NEEDS PT RESPONDS, "YES, I AM GOING SOMEWHERE TO REST." ENCOURAGED BEDREST; DIFFICULTY TO REORIENT. BED ALARM PLACED ON PT.
--- NOTE | 2020-10-19 18:37 | NUR ---
DR. LOPEZ UPDATED ON PT CONDITION AT THIS TIME. NEW ORDERS RECEIVED.
--- NOTE | 2020-10-19 19:30 | NUR ---
PATIENT CONFUSED AND RESTLESS. ORIENTED TO PERSON ONLY, CAN STATE NAME AND AGE. REAPPLIED FLOWER ARRANGER, O2 SAT AND BP CUFF THAT HAD BEEN REMOVED BY PATIENT. O2 ON AT 14 L HFNC. O2 SAT 96% AT REST. BREATH SOUNDS DIMINIJSHED WITH FAINT WHEEZE IN UPPER LOBES. MOIST, NON-PRODUCTIVE COUGH. IV IN RAC, SITE BENIGN, NS INFUSING AT 20 ML/HR. FLOWER ARRANGER SHOWS ST WITH PAC'S AND OCC PVC'S. PUREWICK PLACED. EXPLAINED PLAN OF CARE. REINFORCE ALL TEACHING NEEDED.
--- NOTE | 2020-10-19 19:35 | NUR ---
ATIVAN 0.5 MG IVP GIVEN ORDERED.
--- NOTE | 2020-10-19 20:30 | NUR ---
STILL RESTLESS AFTER ATIVAN GIVEN EARLIER. SEROQUEL 25 MG PO GIVEN ORDERED.
[2020-10-20] VITALS (21 sets, daily range): BP systolic 104–172; BP diastolic 51–87
--- NOTE | 2020-10-20 | NUR ---
DOZES FOR SHORT INTERVALS. AWAKE AT THIS TIME. REMAINS CONFUSED, ORIENTED TO PERSON ONLY. VSS. AFEBRILE.
--- NOTE | 2020-10-20 02:00 | NUR ---
VSS. CONTINUES TO DOZE FOR SHORT INTERVALS. MAINTAINING O2 SAT 91-96%
--- NOTE | 2020-10-20 04:00 | NUR ---
VSS. AFIB ON MONITOR. RESTLESS AND CONFUSED WHEN AWAKE.
--- NOTE | 2020-10-20 04:30 | NUR ---
ATIVAN 1 MG IVP ORDERED FOR RESTLESSNESS.
--- NOTE | 2020-10-20 04:45 | NUR ---
PATIENT REMOVED PUREWICK. COMPLETE BED BATH AND LINENS CHANGED. DOV-CARE DONE AND PUREWICK REPLACED.
[2020-10-20 05:21] LABS: HEMATOCRIT 37.5 % (37.0-47.0); HEMOGLOBIN 12.2 g/dl (12.0-16.0); IMMATURE GRANULOCYTES 1.8 % (0.0-5.0); MEAN CELL VOLUME 94.7 fL CALC (80.0-100.0); MEAN CORPUSCULAR HGB 30.8 pG CALC (26.0-32.0); MEAN CORPUSCULAR HGB CONC 32.5 g/dL CAL (32.0-36.0); NEUT# 11.1 thou/uL (2.00-7.15); RED BLOOD COUNT 3.96 mill/uL (4.20-5.60); RED CELL DISTRI WIDTH 12.4 % (11.5-15.5)
--- NOTE | 2020-10-20 05:50 | NUR ---
SLEEPING SOUNDLY AT THIS TIME. VSS. O2 SAT 100%-DECREASED O2 TO 10 L HFNC. SR ON MONITOR. PUREWICK DRAINING CLEAR YELLOW URINE.
[2020-10-20 05:58] LABS: ALBUMIN 3.4 g/dL (3.2-5.0); ALKALINE PHOSPHATASE 30 u/l (38-126); BILIRUBIN, TOTAL 0.5 mg/dL (0.0-1.4); BUN 35 mg/dL (8-23); BUN/CREATININE RATIO 45 (12-20 (CALC)); C-REACTIVE PROTEIN 4.4 mg/dL (0-0.9); CARBON DIOXIDE 21 mmol/l (22-30); CHLORIDE 114 mmol/l (95-108); CREATININE 0.8 mg/dL (0.5-1.0); GFR > 60 ML/MIN (>=60 (CALC)); GFR FOR AFR.AMER. > 60 ML/MIN (>=60 (CALC)); SGOT/AST 86 u/l (9-36); SODIUM 144 mmol/l (137-146)
[2020-10-20 06:26] LABS: ANION GAP 13 (6-22 (CALC)); POTASSIUM 3.9 mmol/l (3.5-5.1)
--- NOTE | 2020-10-20 07:15 | NUR ---
REPORT RECEIVED FROM ELENI GONZALEZ. PT RESTING IN BED SEMI FOWLERS WITH EYES CLOSED AND NO SIGNS OF DISTRESS. RESPIRATIONS EVEN AND UNLABORED ON 10L OF HIGH FLOW HUMIDIFIED OXYGEN; SPO2 100%; OXYGEN TITRATED DOWN TO 8L AND PT NOW 92-94%. IV FLUIDS INFUSING AT KVO; IV SITE APPEARS HEALTHY. SAFETY MEASURES IN PLACE. CALL LIGHT WITHIN REACH.
--- NOTE | 2020-10-20 08:00 | NUR ---
PT MOVING AROUND AND RESTLESS IN BED, BUT KEEPS HER EYES CLOSED. OXYGEN NOW AT 10L. PT OPENS EYES TO VERBAL STIMULI, BUT DOES NOT ANSWER QUESTIONS APPROPRIATELY. C/O BEING COLD AND TEMP IS 96.3. ROOM WARMED AND WARM BLANKET APPLIED. PULLED AND REPOSITIONED IN BED. PURWIK CATHETER IN PLACE SUCTIONING CLEAR YELLOW URINE; 650ML EMPTIED AT THIS TIME.
--- NOTE | 2020-10-20 08:22 | NUR ---
DR. LOPEZ AND RISHABH RODRIGUEZ AT BEDSIDE FOR EVAL. SON CALLED UNIT FOR UPDATE.
--- NOTE | 2020-10-20 08:40 | NUR ---
DR. LOPEZ ATTEMPTED TO CALL TO UPDATE ON DECLINE IN PATIENT CONDITION WITH NO ANSWER. , MYRIAM, RETURNED CALL AND ALLOWED TO SPEAK WITH . PT DOES NOT MAKE SENSE WHEN SPEAKING, LIKE A WORD SCRAMBLE THEN COUNTING IN TURKMEN. PT HAS PERRLA, BUT DOES NOT FOLLOW COMMANDS CORRECTLY AND IS NOT COOPERATIVE WITH NEURO ASSESSMENT. DR. LOPEZ NOTIFIED.
--- NOTE | 2020-10-20 09:35 | NUR ---
PT ABLE TO TAKE PILLS 2 AT A TIME WITH CONSTANT VERBAL CUES AND ENCOURAGEMENT. HALLUCINATING; SEEING PEOPLE IN ROOM AND SPEAKING TO THEM. WHEN SHE SPEAKS TO NURSE SHE RARELY FORMS COMPLETE SENTENCES. "ISAURA MALONE. 500. TIANNA ZULUAGA CINCO, SEIS. ARE YOU PLAYING FOOTBALL TODAY?"
--- NOTE | 2020-10-20 10:43 | NUR ---
ADDITIONAL DOSE OF CARDIZEM PO GIVEN NOW. SINUS TACH ON MANAGER OF DIGITAL HR AT 121.
--- NOTE | 2020-10-20 11:47 | NUR ---
DRANK AN ENTIRE ENSURE WITH ENCOURAGEMENT, BUT DECLINED THE REST OF HER LUNCH. MILK OF MAGNESIA GIVEN FOR CONSTIPATION ALONG WITH SCHEDULED STOOL SOFTNER.
--- NOTE | 2020-10-20 13:30 | NUR ---
PT HAS REMOVED OXYGEN TWICE NOW; SPO2 DECREASING TO 85%. OXYGEN REAPPLIED. REMOVED HER GOWN STATING THAT SHE WAS HOT; ROOM COOLED.
--- NOTE | 2020-10-20 14:09 | NUR ---
REMDESIVIR INFUSING. PT TALKING TO HERSELF.
--- NOTE | 2020-10-20 15:19 | NUR ---
INCREASED RESTLESSNESS AND REMOVING BP CUFF, SPO2 PROBE, TELE, AND GOWN. SINUS TACH IN THE 120'S. ATIVAN GIVEN AT THIS TIME AND VENTOLIN INHALER.
--- NOTE | 2020-10-20 16:50 | NUR ---
PT GIVEN DOV CARE AND PURWIK CATHETER REPLACED. 400ML EMPTIED FROM SUCTION CANISTER. ROCEPHIN INFUSING. TEMP 98.2. CONTINUES ON 12L OF OXYGEN ON HIGH FLOW NC; SPO2 93%; RR 28. HEART RATE REMAINS IN THE 110S-120S. REMAINS CONFUSED WITH HALLUCINATIONS AND GRASPING AT AIR ABOVE HER. ON AIRBORN/CONTACT PRECAUTIONS FOR COVID. SAFETY MEASURES IN PLACE. NEEDS ARE ANTICIPATED BY STAFF.
--- NOTE | 2020-10-20 18:08 | NUR ---
REPOSITIONED INTO HIGH FOWLERS FOR DINNER; DRANK A WHOLE ENSURE, BUT OTHERWISE DECLINED. ZITHROMAX INFUSING.
--- NOTE | 2020-10-20 19:35 | NUR ---
PATIENT CONTINUES TO BE CONFUSED, ORIENTED TO PERSON ONLY. RESTLESS, CONSTANTLY PICKING AT ARM BRACELETS, ATTEMPTS TO REMOVE MONITOR, PULSE OX AND PUREWICK. ATTEMPTS TO REORIENT UNSUCCESSFUL. RESP DYSPNEIC WITH EXERTION. BREATH SONDS CLEAR IN UPPER LOBES, DIMINISHED IN BILATERAL BASES. MOIST, NON-PRODUCTIVE COUGH PRESENT. ABD SOFTLY DISTENDED WITH HYPOACTIVE BOWEL SOUNDS. PUREWICK IN PLACE DRAINING CLEAR YELLOW URINE. NO PERIPHERAL EDEMA, PULSES INTACT. IV IN RAC, SITE BENIGN, NS INFUSING AT KVO. BOARD CERTIFIED ORTHODONTIST SHOWS ST, HR 120'S. EXPLAINED PLAN OF CARE. ANY TEACHING NEEDS FREQ REINFORCEMENT. CALL ZHENG IN REACH.
--- NOTE | 2020-10-20 21:00 | NUR ---
ATIVAN 1 MG IVP FOR CONTINUED RESTLESSNESS. PATIENT REMOVED PUREWICK, INCONTINENT OF LARGE AMOUNT OF URINE IN BED. PARTIAL BATH, COMPLETE LINEN CHANGE. PUREWIK REPLACED.
--- NOTE | 2020-10-20 22:00 | NUR ---
RESTING WITH EYES CLOSED. VSS. RESP EVEN AND UNLABORED AT REST. SR ON MONITOR, HR 90'S.
[2020-10-21] VITALS (10 sets, daily range): BP systolic 106–155; BP diastolic 54–74
--- NOTE | 2020-10-21 | NUR ---
PATIENT AWAKE ON ROUNDS YET DROWSY. ASSISTED WITH REPOSITIONING IN BED. PATIENT QUICKLY BACK TO SLEEP. VSS. RESP NNO-LABORED.
--- NOTE | 2020-10-21 02:00 | NUR ---
RESTING WITH EYES CLOSED. WHEN ASLEEP, HR IN THE 90'S, RR 16-18, O2 SAT 100%
--- NOTE | 2020-10-21 03:42 | NUR ---
AWAKE, RESTLESS AGAIN. PATIENT C/O BEING COLD. REPOSITIONED IN BED. PROVIDED WITH ADDITIONAL BLANKET. VSS. SR-ST ON MONITOR.
--- NOTE | 2020-10-21 06:13 | NUR ---
PATIENT HAS RESTED QUIETLY PAST FEW HOURS. VSS. O2 SAT HAS BEEN MAINTAINED >92% SR-ST ON MONITOR.
--- NOTE | 2020-10-21 06:45 | NUR ---
REPORT RECEIVED FROM ERIKA KNOWLES. CARE ASSUMED
--- NOTE | 2020-10-21 07:15 | NUR ---
PT RESTING IN BED AWAKE. PT IS ALERT AND ORIENTED TO SELF. REORIENTATION UNSUCCESSFUL. SHIFT ASSESSMENT COMPLETED AT THIS TIME. IV PATENT X1. PT HAD LARGE INCONTINENCE. PT CLEANSED AND LINENS CHANGED. PT STATES THAT SHE IS COLD. WARM BLANKET APPLED. CALL LIGHT IN REACH. WILL CONTINUE TO MONITOR.
--- NOTE | 2020-10-21 08:00 | NUR ---
O2 DECREASED TO 10L NASAL CANNULA. O2 SATS REMAIN >92%.
--- NOTE | 2020-10-21 08:02 | NUR ---
SON LORETA PHONED FOR UPDATE. UPDATE PROVIDED. ASKED TO [place] TO MOTHER. [facility]
--- NOTE | 2020-10-21 08:10 | NUR ---
DR LOPEZ AT BEDSIDE AT THIS TIME.
--- NOTE | 2020-10-21 08:28 | NUR ---
PHONED FOR UPDATE AND REQUESTING TO SPEAK WITH PATIENT. EXPLAINED THAT PATIENT WAS VERY RESTLESS IF HE COULD PLEASE PHONE BACK. AGREED TO CALL BACK.
--- NOTE | 2020-10-21 08:45 | NUR ---
PT MEDICATED PER DEC WITH TYLENOL FOR GENERALIZED ACHING. O2 DECREASED TO 8L NC. O2 SATS REMAIN >92%.
--- NOTE | 2020-10-21 09:00 | NUR ---
PT MOANING IN BED AND RESTLESS. PT ASSISTED UP TO RECLINER AT THIS TIME. CALL LIGHT IN REACH WILL CONTINUE TO MONITOR
--- NOTE | 2020-10-21 09:30 | NUR ---
CALLED AND ASKED TO SPEAK WITH PATIENT. PHONE CALL TO [facility] AND TAKEN INTO ROOM. STATES HE DOESNT UNDERSTAND WHYSHE WONT TALK TO HIM. ATTEMPTED TO EXPLAINED THAT SHE IS CONFUSED.
--- NOTE | 2020-10-21 09:51 | NUR ---
PT CONTINUES TO BE RESTLESS IN CHAIR. SITTING UP AND BACK. PT ASSISTED BACK TO BED FOR SAFETY CONCERNS. Jeff MONTEIRO APRN NOTIFIED AT THIS TIME
--- NOTE | 2020-10-21 10:02 | NUR ---
PT CONTINUES TO PULL EVERYTHING OFF. REORIENTATION CONTINUES TO BE UNSUCCESSFUL. PT COMPLAINS OF GENERALIZED PAIN. PT MEDICATED PER MAR AT THIS TIME. REPOSITIONED IN BED. CALL LIGHT IN REACH. WILL CONTINUE TO MNIOTR.
--- NOTE | 2020-10-21 10:50 | NUR ---
PT PULLED OFF GOWN, BRIEF, BP CUFF, O2 MONITOR. PT ATTEMPTING TO PULL OFF WRIST NAME BAND AND ALLERGY BAND. REORIENTATIONS CONTINUES TO BE UNSUCCESSFUL. BRIEF REMOVED DUE TO SOILED. PT REPOSITIONED. CALL LIGHT IN REACH. WILL CONTINUE TO MONITOR
--- NOTE | 2020-10-21 11:00 | NUR ---
PT PULLED OFF GOWN, O2, O2 MONITOR, AND TELE LEADS. ATTEMPTED TO PUT GOWN BACKON PATIENT. PT REPLIED "I SLEEP NAKED". GOWN LEFT OFF PER PT REQUEST AND REFUSAL TO PLACE BACK ON. TELE LEADS REPLACED. O2 PLACED BACK ON PATIENT. PT COVERED WITH BLANKET. CALL LIGHT IN REACH. WILL CONTINUE TO MONITOR.
--- NOTE | 2020-10-21 11:51 | NUR ---
PT RESTING ON LEFT SIDE AT THIS TIME. CARDIAC LEADS PLACED BACK ON O2 DECREASED TO 6L HI MONE NASAL CANNULA. O2 SATS REMAIN >92%. PT REFUSING TO ALLOW BP CUFF PLACED BACK ON. WILL CONTINUE TO MONITOR.
--- NOTE | 2020-10-21 13:00 | NUR ---
O2 TITRATED DOWN TO 4L NC. O2 SATS REMAIN AT 100%
--- NOTE | 2020-10-21 14:30 | NUR ---
PT RESTING IN BED ON LEFT SIDE AT THIS TIME. RESP ARE EVEN AND UNLABORED. NO DISTRESS NOTED. O2 TITRATED DOWN TO 4L NC. O2 SATS REMAIN AT 100%. PT CONTINUES TO REFUSE BP CUFF TO BE PUT ON. CALL LIGHT IN REACH. WILL CONTINUE TO MONITOR.
--- NOTE | 2020-10-21 15:33 | NUR ---
EVA KAN CALLED FOR UPDATE. UPDATE PROVIDED.
--- NOTE | 2020-10-21 16:17 | NUR ---
PT RESTLESS IN BED AT THIS TIME. ON PHONE FOR UPDATE AT THIS TIME. CALL LIGHT IN REACH. WILL CONTINUE TO MONITOR.
--- NOTE | 2020-10-21 16:30 | NUR ---
PT RESTLESS IN BED. THIS NURSE INTO ROOM. LARGE INCONTINENCE NOTED. PT GIVEN COMPLETE BED BATH AND LINENS CHANGED. PT PULLING AT MONITOR. REORIENTATION CONTINUES TO BE UNSUCCESSFUL. REPOSITIONED PT IN BED. ZYPREXA GIVEN PER MD ORDERS AND MAR. CALL LIGHT IN REACH. WILL CONTINUE TO MONTIOR.
--- NOTE | 2020-10-21 17:59 | NUR ---
pt refused pm meal tray. pt continues to refuse to have bp taken. call light in reach. will adilene to jose
--- NOTE | 2020-10-21 18:10 | NUR ---
pt pulled off environmental monitoring technician and brief at this time. replaced. pt states that she is cold. sheridan vidal. pt declined. covered with blankets and provided extra
--- NOTE | 2020-10-21 18:55 | NUR ---
MEDICATED WITH ATIVAN, PATIENT IS RESTLESS IN BED, ATTEMPTS TO GET OUT OF BED. DOES NOT FOLLOW DIRECTIONS. DOES NOT KEEP HER OXYGEN CANNULA ON. WHEN ASKED IF SHE IS COLD, SHE STATES, "YES." COVERED PATIENT WITH BLANKETS, NURSE ASSESSMENT PERFORMED. AFIB 100'S ON TELMETRY. O2 TITARTED TO 5 L/MIN, O2 WAS READING 85%. RAC 20 G IV INTACT, NS AT KVO, ON HOLD SINCE SHE IS NOT FOLLOWING DIRECTIONS AND DOES NOT UN BEND HER ARM. SHE DOES HAVE A MOIST NON PRODUCTIVE COUGH. RESTLESS IN BED, TURNS FROM ONE SIDE TO THE OTHER. SHE DOES KEEP PULLING OFF HER OXYGEN AND THE CARDIAC MNITOR EQUIPMENT. WILL CONTINUE TO MONITOR.
--- NOTE | 2020-10-21 20:25 | NUR ---
PATIENT PULLS OFF HER OXYGEN AND DESATS TO 77%. SHE DOES NOT FOLLOW DIRECTIONS, IS GUARDED AND DOES NOT KEEP IT ON.
--- NOTE | 2020-10-21 20:30 | NUR ---
CALLED AND SPOKE TO MICHAEL KEATING TO NOTIFY OF PATIENT CURRENT STATUS. NEW ORDRES GIVEN, ALSO ORDERED RESTRAINTS.
--- NOTE | 2020-10-21 20:45 | NUR ---
PATIENT WAS REPOSITIONED, CLEANED UP. GOWN PLACED. BED LINEN WAS CHANGED. RESTRAINTS APPLIED. HOB 45 DEGREES, SHE WAS ABLE TO SWALLOW HER SEROQUEL DUE WITH JELLO, ALSO TOOK A SIP OF WATER. IV FLUIDS WERE RE STARTED. O2 INCREASED TO 6 L/MIN ON HIGH FLOW NC H, O2 WAS 88% ON 5 L/MIN. WILL CONTINUE TO MONITOR.
--- NOTE | 2020-10-21 21:44 | NUR ---
CALLED SPOUSE OF PATIENT, DID NOT ANSWER. CALLED SON AND NOTIFIED OF PATIENT RESTRAINTED FOR HER SAFETY AND SHE WAS NOT KEEPING HER NASAL CANNULA ON AT ALL, WAS DESATTING.
--- NOTE | 2020-10-21 22:50 | NUR ---
PATIENT SCOOTS DOWN TO FOOT OF BED. MOANS, DOES NOT ANSWER IF SHE IS IN PAIN, TYLENOL GIVEN, SONATA GIVEN. PATIENT WAS REPOSITIONED. RESTRAINTS RELEASED FOR NURSING CARE, NOW SAFELY BACK ON. HOB 45 DEGREES. HEART RATE RAISES TO 120'S WHEN PATIENT IS RSTLESS.
[2020-10-22] VITALS (17 sets, daily range): BP systolic 108–144; BP diastolic 56–83
--- NOTE | 2020-10-22 00:41 | NUR ---
PATIENT RESTS WITH EYES CLOSED, WITH HOB 30 DEGREES. O2 96% ON 6 L/MIN HIGH FLOW NC H. NO ACUTE DISTRESS SHOWN.
--- NOTE | 2020-10-22 01:50 | NUR ---
PATIENT BEGINS TO BECOME RESTLESS, PATIENT WAS REPOSITIONED, PERICARE PROVIDED FOR INCONTINENCE OF URINE. O2 SAT DOES DROP TO 80'S WITH EXERTION. WILL CONTINUE TO MONITOR.
--- NOTE | 2020-10-22 05:16 | NUR ---
ASSISTED TODDLER NANNY WITH BLOOD DRAW SINCE PATIENT WOULD NOT COOPERATE. PERICARE PROVIDED. NEW BRIEF APPLIED. REPOSITIONED. AFEBRILE. ATIVAN GIVEN FOR RESTLESSNESS.
[2020-10-22 06:07] LABS: MEAN CELL VOLUME 96.2 fL CALC (80.0-100.0); MEAN CORPUSCULAR HGB CONC 32.2 g/dL CAL (32.0-36.0); RED BLOOD COUNT 2.87 mill/uL (4.20-5.60); RED CELL DISTRI WIDTH 12.8 % (11.5-15.5)
[2020-10-22 06:11] LABS: ALKALINE PHOSPHATASE 33 u/l (38-126); ANION GAP 9 (6-22 (CALC)); BILIRUBIN, TOTAL 0.5 mg/dL (0.0-1.4); BUN 44 mg/dL (8-23); BUN/CREATININE RATIO 60 (12-20 (CALC)); C-REACTIVE PROTEIN 3.1 mg/dL (0-0.9); CHLORIDE 119 mmol/l (95-108); CREATININE 0.7 mg/dL (0.5-1.0); GFR > 60 ML/MIN (>=60 (CALC)); GFR FOR AFR.AMER. > 60 ML/MIN (>=60 (CALC)); POTASSIUM 4.2 mmol/l (3.5-5.1); SGOT/AST 83 u/l (9-36); SODIUM 151 mmol/l (137-146); TOTAL PROTEIN 5.3 g/dL (6.3-8.2)
[2020-10-22 06:14] LABS: CARBON DIOXIDE 27 mmol/l (22-30)
[2020-10-22 06:18] LABS: HEMATOCRIT 27.6 % (37.0-47.0); HEMOGLOBIN 8.9 g/dl (12.0-16.0)
--- NOTE | 2020-10-22 06:45 | NUR ---
REPORT RECEIVED FROM YOSEPH KNOWLES. CARE ASSUMED.
--- NOTE | 2020-10-22 07:15 | NUR ---
PT RESTING IN BED AWAKE. PT MOANS ALOUD. PT DOES NOT RESPOND APPROPRIATELY TO QUESTIONS. BILAT WRIST RESTRAINTS IN PLACE. PT MOVES ABOUT IN BED REPOSITIONING SELF.O2 INCREASED TO 6L NASAL CANNULA FOR O2 SAT 88%. SHIFT ASSESSMENT COMPLETED AT THIS TIME. IV PATENT X1. CALL LIGHT IN REACH. WILL CONTINUE TO MONITOR
--- NOTE | 2020-10-22 07:33 | NUR ---
LAB AT BEDSIDE AT THIS TIME.
[2020-10-22 07:59] LABS: HEMATOCRIT 27.4 % (37.0-47.0)
--- NOTE | 2020-10-22 08:40 | NUR ---
DR LOPEZ AT BEDSIDE AT THIS TIME.
--- NOTE | 2020-10-22 09:30 | NUR ---
PT REPOSITIONED IN BED. MEDS GIVEN. WATER GIVEN VIA SYRINGE. PT TOLERATED WELL.
--- NOTE | 2020-10-22 11:29 | NUR ---
PT REPOSITIONED IN BED. SUPPOSITORY GIVEN PER MD ORDER. CALL LIGHT IN REACH. WILL CONBTINUE TO MONITOR.
--- NOTE | 2020-10-22 12:12 | NUR ---
PT FED BY THIS NURSE AT THIS TIME. PT ATE 25% OF LUNCH AND DRANK SOME TEA. PT TOLERATED WELL. WILL CHSANGE DIET TO PUREED. PHONED PHARMACY TO VCHANGE MEDS TO CRUSHABLE.
--- NOTE | 2020-10-22 13:59 | NUR ---
PHYSICAL THERAPY AT BEDSIDE AT THIS TIME.
--- NOTE | 2020-10-22 14:30 | NUR ---
PT RESTING IN BED WITH EYES CLOSED. PT CONTINUES TO MOAN ALOUD. RESP ARE EVEN AND UNLABROED. NO DISTRESS NOTED. CALL LIGHT IN ALLIE. WILL CONTINUE TO MONITOR
--- NOTE | 2020-10-22 14:57 | NUR ---
REPORT RECEIVED FROM SELENERN
--- NOTE | 2020-10-22 15:30 | NUR ---
PT RESTING IN SEMI FOWLERS POSITION, AWAKE BUT CONFUSED;RESPIRATIONS SHALLOW ON O2 @ 8L HF NC;NO S/S OF PAIN NOTED;CARDIAC MONITORING IN PLACE;#20G TO RAC INFUSING ABX PER ORDER WITH EASE;BILATERAL WRIST RESTRAINTS NOTED TO BE IN PLACE, GOOD CIRCULATION AND CAP REFILL NOTED;PT REMAINS IN AIR/CONTACT PRECAUTIONS DUE TO COVID19 DX;ALL SAFETY PRECAUTIONS REMAIN IN PLACE WITH BED IN THE LOWEST POSITION AND CALL LIGHT IN REACH;WILL CONTINUE TO MONITOR
--- NOTE | 2020-10-22 17:30 | NUR ---
PT RESTING IN SEMI FOWLERS POSITION;RESPIRATIONS SHALLOW ON O2 @ 8L HF NC;PT DENIES ANY CURRENT PAIN OR DISCOMFORTS;PT RE-POSITIONED IN BED WITH ASSISTANCE FROM FAUSTINA RN;PT INCONTINENT OF LARGE AMOUNT OF URINE,DOV CARE PROVIDED;IV SITE PATENT AND ABX STARTED AT THIS TIME;BILATERAL WRIST RESTAINTS REMAIN IN PLACE WITH GOOD CIRCULATION NOTED;ALL SAFETY PRECAUTIONS IN PLACE WITH BED IN THE LOWEST POSITION AND CALL LIGHT IN REACH;WILL CONTINUE TO MONITOR
--- NOTE | 2020-10-22 19:30 | NUR ---
PT RESTLESS IN BED. DOES NOT FOLLOW DIRECTION. OPENS EYES TO VERBAL STIMULI. NO RESP DISTRESS NOTED.
--- NOTE | 2020-10-22 20:00 | NUR ---
PT RESTLESS IN BED. OPENS EYES WHEN ENTERING ROOM. NO RESP DISTRESS NOTED.
[2020-10-23] VITALS (11 sets, daily range): BP systolic 102–145; BP diastolic 58–87
--- NOTE | 2020-10-23 | NUR ---
PT REMAINS PULLING AT DEVICES. REMOVES BLANKET, RESTLESS IN BED.
--- NOTE | 2020-10-23 01:30 | NUR ---
PT INCONT URINE. LINENS CHANGED, PT CLEANED.
--- NOTE | 2020-10-23 02:00 | NUR ---
PT RESTLESS IN BED, REMOVED BANKET, TRYING TO REMOVE NC. REORIENTATION PROVIDED.
--- NOTE | 2020-10-23 04:44 | NUR ---
PT RESTLESS, KICKED OFF BLANKETS. MOANS WHEN YOU CALL HER NAME. NO RESP DISTRESS NOTED.
--- NOTE | 2020-10-23 05:04 | NUR ---
LAB AT BEDSIDE.
[2020-10-23 05:35] LABS: HEMATOCRIT 28.1 % (37.0-47.0); HEMOGLOBIN 8.9 g/dl (12.0-16.0); MEAN CELL VOLUME 97.2 fL CALC (80.0-100.0); MEAN CORPUSCULAR HGB 30.8 pG CALC (26.0-32.0); MEAN CORPUSCULAR HGB CONC 31.7 g/dL CAL (32.0-36.0); RED BLOOD COUNT 2.89 mill/uL (4.20-5.60)
[2020-10-23 05:48] LABS: ALBUMIN 3.3 g/dL (3.2-5.0); ALKALINE PHOSPHATASE 38 u/l (38-126); ANION GAP 12 (6-22 (CALC)); BUN 38 mg/dL (8-23); BUN/CREATININE RATIO 51 (12-20 (CALC)); CARBON DIOXIDE 27 mmol/l (22-30); CHLORIDE 121 mmol/l (95-108); CREATININE 0.7 mg/dL (0.5-1.0); GFR > 60 ML/MIN (>=60 (CALC)); GFR FOR AFR.AMER. > 60 ML/MIN (>=60 (CALC)); POTASSIUM 3.9 mmol/l (3.5-5.1); SODIUM 156 mmol/l (137-146); TOTAL PROTEIN 5.7 g/dL (6.3-8.2)
[2020-10-23 05:49] LABS: BILIRUBIN, TOTAL 0.9 mg/dL (0.0-1.4); SGOT/AST 181 u/l (9-36)
--- NOTE | 2020-10-23 07:30 | NUR ---
ASSESSMENT IS COMPLTED: IV SITE IS FREE FROM REDNESS OR EDEMA PT IS RESTRAINED DUE TO PULLING OUT TUBES AND IV SITE S. RANGE OF MOTION ATTEMPTED AND PT MOVES ALL OVER. HR IS REG,PULSES ARE STRONG X4, ABD IS SOFT WITH ACTIVE BS. BREATH SOUNDS ARE CLEAR AND DIMINISHED. O2 @ 8LITERS WITH NC. CONTINUE TO OSBERVE AND MONITOR.
--- NOTE | 2020-10-23 08:39 | NUR ---
FULL LIQUID SON CALLING AND INQUIRED. ABOUT THE O2 SATS IS 90% GOING AT 8LITERS. CLAYTON BAE.
--- NOTE | 2020-10-23 09:00 | NUR ---
ATTEMPTED TO GIVE MEDICATIONS TO PT WITH APPLESAUCE. REFUSED TO OPEN HER MOUTH. WILL ATTEMPT AGAIN.
--- NOTE | 2020-10-23 11:36 | NUR ---
DR LOPEZ IS SPEAKING WITH SPOUSE. RE: PT
--- NOTE | 2020-10-23 11:53 | NUR ---
PLASMA, FAMILY STATES" TAMMIE PT'S HAVE HAD THE PLAMA AND WORKED WONDERFULLY FOR THEM" EXPLAINED ABOUT THE FLUID BEING TOO MUCH AND COULD AFFECT HER HEART. STATED" I BET IF SHE WENT TO ANOTHER HOSPITAL THEN THEY WOULD GIVE HER THE PLASMA".
--- NOTE | 2020-10-23 12:15 | NUR ---
PT IS RESTLESS IN BED WITH NO DISTRESS NOTED.
--- NOTE | 2020-10-23 14:00 | NUR ---
PT CONTINUES TO BE IN RESTRAINTS DUE TO MOVING AROUND AND PULLING AT LINES. SKIN IS INTACT. ASSISTED WITH LUNCH BY STAFF. CONTINUE TO OSBERVE AND MONITOR.
--- NOTE | 2020-10-23 16:00 | NUR ---
PT IS RELAXING AND MOVING AROUND IN BED. RESTRAINTS ARE IN USE. CONTINUE TO OBSERVE AND MONITOR.
--- NOTE | 2020-10-23 17:05 | NUR ---
PT'S SON IS CALLING INQUIRED ABOUT THE PT.
--- NOTE | 2020-10-23 18:17 | NUR ---
PT IS RELAXING , CONTINUES TO MOVE AROUND. RESTRAINTS ARE IN PLACE.
--- NOTE | 2020-10-23 20:00 | NUR ---
PATIENT AWAKE, RESTLESS IN BED. REMAINS CONFUSED. RESP ARE DYSPENIC WITH EXERTION. O2 ON AT 8 L NC BREATH SOUNDS DIMINISHED THROUGHOUT LUNG ROBERTSON. INCONTINENT OF URINE PATIENT HAS BRIEF ON. NS INFUSING AT 20 ML/HR TO RAC IV SITE. CARDIA MONITOR SHOWS ST WITH PAC'S. CALL ZHENG IN PLACE. EXPLAINED PLAN OF CARE.
--- NOTE | 2020-10-23 22:00 | NUR ---
REMAINS CONFUSED. TALKING GIBBERISH. VSS. ST ON MONITOR. PUREWICK APPLIED.
[2020-10-24] VITALS (11 sets, daily range): BP systolic 76–146; BP diastolic 55–88
--- NOTE | 2020-10-24 00:10 | NUR ---
REMAINS RESTLESS AND CONFUSED. CLOSES EYES FOR SHORT INTERVALS.
--- NOTE | 2020-10-24 02:00 | NUR ---
RESTS CALMLY AND QUIETLY FOR SHORT INTERVALS. O2 SAT 94% ST ON MONITOR.
--- NOTE | 2020-10-24 04:00 | NUR ---
REMAINS RESTLESS AND CONFUSED. ST ON MONITOR. O2 ON AT 8 L HFNC.
[2020-10-24 05:55] LABS: HEMATOCRIT 30.2 % (37.0-47.0); HEMOGLOBIN 9.4 g/dl (12.0-16.0); MEAN CELL VOLUME 98.7 fL CALC (80.0-100.0); MEAN CORPUSCULAR HGB 30.7 pG CALC (26.0-32.0); MEAN CORPUSCULAR HGB CONC 31.1 g/dL CAL (32.0-36.0); NEUT# 21.26 thou/uL (2.00-7.15); RED BLOOD COUNT 3.06 mill/uL (4.20-5.60); RED CELL DISTRI WIDTH 13.1 % (11.5-15.5)
--- NOTE | 2020-10-24 06:00 | NUR ---
PATIENT REMAINS CONFUSED AND RESTLESS THROUGHOUT THE NIGHT. VSS. O2 SAT [address] ON MONITOR.
[2020-10-24 06:11] LABS: ANION GAP 11 (6-22 (CALC)); BUN 38 mg/dL (8-23); BUN/CREATININE RATIO 46 (12-20 (CALC)); C-REACTIVE PROTEIN 2.1 mg/dL (0-0.9); CARBON DIOXIDE 26 mmol/l (22-30); CHLORIDE 125 mmol/l (95-108); CREATININE 0.8 mg/dL (0.5-1.0); GFR > 60 ML/MIN (>=60 (CALC)); GFR FOR AFR.AMER. > 60 ML/MIN (>=60 (CALC)); SODIUM 158 mmol/l (137-146)
--- NOTE | 2020-10-24 06:17 | NUR ---
PT HAS BEEN DESATING INTO 80S WITH 15L NASAL CANNULA. PT PLACED ON VAPOTHERM 100% WITH 30L FLOW, TOLERATING WELL. HR 80, SPO2 96%.
--- NOTE | 2020-10-24 07:45 | NUR ---
ASSESSMENT IS COMPLETD: IV SITE IS FREE FROM REDNESS OR EDEMA. HR IS REG,PULSES ARE STRONG X4, ABD IS SOFT WITH ACTIVE BS. BREATH SOUNDS ARE CLEAR WTIH DIMINISHED. O2 @ 8 LITERS WITH NC. RESTRAINTS CONTINUE TO BE IN USE. DUE TO PT PULLING OUT LINES. RANGE OF MOTION IS GOOD.
--- NOTE | 2020-10-24 09:24 | NUR ---
DR LOPEZ IN TO VISIT WITHPT.
--- NOTE | 2020-10-24 09:42 | NUR ---
URINE OBTAINED BY ERNIE KNOWLES WITH PUREWICK. SENT FOR TESTING
--- NOTE | 2020-10-24 09:54 | NUR ---
SPEAKING WITH THE SPOUSE. INFORMED PT IS DOING BETTER.
--- NOTE | 2020-10-24 10:00 | NUR ---
PT IS RELAXING IN BED ABLE TO TAKE MEDICATIONS WITH APPLESAUCE TODAY
--- NOTE | 2020-10-24 12:00 | NUR ---
PT IS RELAXING IN BED WITH NO DISTRESS NOTED. IV SITE IS FREE FROM REDNESS OR EDEMA. RESTRAINTS IN USE.
--- NOTE | 2020-10-24 12:09 | NUR ---
Pt able to consume 25% of meal with 75% of ensure. pt tolerated well
--- NOTE | 2020-10-24 13:00 | NUR ---
REPORT REC FROM VIKKI RODRIGUES
--- NOTE | 2020-10-24 13:15 | NUR ---
PT LAYING IN BED. A&O TO SPEECH. PT CURRENTLY NON VERBAL, MINIMAL EYE CONTACT MADE. O2 VIA NC @ 8L HIGH FLOW. BED SET IN LOWEST POSITION. BILATERAL SOFT WRIST RESTAINTS IN PLACE. CONTINUE TO MONITOR.
--- NOTE | 2020-10-24 16:07 | NUR ---
PT SHOWING SIGNS OF DISCOMFORT AND PAIN, DR LOPEZ NOTIFIED. PRN ORDER FOR 1MG Q4 HR PRN FOR PAIN OBTAINED. ORDER WRITTEN AND FAXED TO [facility]
--- NOTE | 2020-10-24 17:11 | NUR ---
BED BATH GIVEN ALONG WITH LINEN CHANGE, PT SLEEPING.
--- NOTE | 2020-10-24 20:00 | NUR ---
RESTING WITH EYES CLOSED. OPENS EYES TO NAME. PATIENT REMAINS CONFUSED, UNABLE TO STATE NAME OR BIRTHDATE. SPEECH IS GARBLED AND GIBBERISH. RESTLESS IN THE BED. MOVES LEGS, ARMS IN SOFT WRIST RESTRAINTS. REMOVED RESTRAINTS BRIEFLY, PATIENT REACHES FOR O2 TUBING AND CHICKEN HATCHERY HELPER, RESTRAINTS REAPPLIED. RESP DYSPNEIC WITH EXERTION. BREATH SOUNDS CLEAR IN UPPER LOBES, DIMINISHED IN BASE. NON-PRODUCTIVE COUGH NOTED. PATIENT HAS BRIEF ON. IV IN [facility], SITE BNEIGN, NS INFUSING AT 20 ML/HR. CHICKEN HATCHERY HELPER SHOWS ST. EXPLAINED PLAN OF CARE. CALL ZHENG IN REACH. PATIENT TOOK SIPS OF WATER.
--- NOTE | 2020-10-24 20:45 | NUR ---
TOOK PO MEDS IN PUDDING. BRIEF CHECKED AND DRY AT THIS TIME. SPOKE WITH SON LORETA BAE ON PHONE TO UPDATE ON PATIENT CONDITION.
--- NOTE | 2020-10-24 21:45 | NUR ---
PATIENT MOANING OUT. 1 MG MORPHINE IVP ORDERED FOR PAIN. PUREWICK PLACED FOR INCONTINANCE.
--- NOTE | 2020-10-24 22:00 | NUR ---
MAMMALOGIST SHOWS SR-ST. PATIENT RESTING QUIETLY AT THIS TIME.
[2020-10-25] VITALS (9 sets, daily range): BP systolic 109–140; BP diastolic 54–90
--- NOTE | 2020-10-25 | NUR ---
CONTINUES TO REST CAMLY AND QUIETLY. VSS. SR ON MONITOR.
--- NOTE | 2020-10-25 02:00 | NUR ---
PATIENT HAS BEEN RESTING CALMLY AND QUIETLY SINCE MEDICATED EARLIER. RESTRAINTS RELEASED AT THIS TIME. VSS. SR ON MONITOR.
--- NOTE | 2020-10-25 03:42 | NUR ---
MEDICATED WITH MORPHINE ORDERED FOR GENERALIZED DISCOMFORTS.
--- NOTE | 2020-10-25 04:10 | NUR ---
PATIENT CONTIUES TO MOAN AND YELL OUT. INCONTINENT OF URINE. COMPLETE BED BATH GIVEN AND PARTIAL LINEN CHANGE. BRIEF PLACED ON PATIENT. PATIENT THRASHING OUT AND GRABBING AT NURSES DURING CARE. SOFT WRIST RESTRAINTS REAPPLIED ORDERED. ATTEMPTS TO CALM PATIENT WITH VERBAL CUES, SUPPORT AND REASSURANCE PROVIDED.
--- NOTE | 2020-10-25 04:45 | NUR ---
RESTIGN QUIETLY WITH EYES CLOSED AT THIS TIME.
[2020-10-25 05:59] LABS: HEMATOCRIT 31.6 % (37.0-47.0); HEMOGLOBIN 9.7 g/dl (12.0-16.0); IMMATURE GRANULOCYTES 3.1 % (0.0-5.0); MEAN CELL VOLUME 101.9 fL CALC (80.0-100.0); MEAN CORPUSCULAR HGB 31.3 pG CALC (26.0-32.0); MEAN CORPUSCULAR HGB CONC 30.7 g/dL CAL (32.0-36.0); NEUT# 23.27 thou/uL (2.00-7.15); RED BLOOD COUNT 3.1 mill/uL (4.20-5.60); RED CELL DISTRI WIDTH 13.2 % (11.5-15.5)
--- NOTE | 2020-10-25 06:00 | NUR ---
CONTINUES TO REST QUIETLY. VSS. SOFT WRIST RESTRAINTS IN PLACE.
[2020-10-25 06:16] LABS: BUN 49 mg/dL (8-23); BUN/CREATININE RATIO 51 (12-20 (CALC)); CARBON DIOXIDE 21 mmol/l (22-30); GFR 53 ML/MIN (>=60 (CALC)); GFR FOR AFR.AMER. > 60 ML/MIN (>=60 (CALC)); POTASSIUM 4.4 mmol/l (3.5-5.1); SODIUM 160 mmol/l (137-146)
[2020-10-25 06:18] LABS: ANION GAP 10 (6-22 (CALC))
[2020-10-25 06:49] LABS: CHLORIDE 133 mmol/l (95-108)
--- NOTE | 2020-10-25 06:57 | NUR ---
REPORT REC FROM ASHANTI RODRIGUES
--- NOTE | 2020-10-25 06:58 | NUR ---
PT SLEEPING IN BED. NO DISTRESS NOTED.
--- NOTE | 2020-10-25 07:19 | NUR ---
PT SLEEPING IN BED. AWAKENS TO NAME, MINIMAL TO NO EYE CONTACT, PT CURRENTLY NON VERBAL. O2 VIA NC @8L HIGH FLOW IN PLACE. PT O2 95-97%. BILATERAL SOFT WRIST RESTRAINTS IN PLACE, CIRCULATION BRISK AND SKIN INTEGRITY INTACT. CLEAR/DIMINSIHED BREATH SOUNDS HEARD DURING AUSCULTATION. #20 RAC PATENT WITH MAINTENCE D5 1/2 NS PER EMAR. TRACE EDEMA NOTED TO BILATERAL ANKLES. BED SET IN LOWEST POSITION. CALL LIGHT IN REACH. CONTINUE TO MONITOR.
--- NOTE | 2020-10-25 08:05 | NUR ---
PT ABLE TO TAKE PARTIAL AMOUNT OF MEDICATIONS IN APPLESAUCE
--- NOTE | 2020-10-25 09:55 | NUR ---
DR LOPEZ AT BEDSIDE
--- NOTE | 2020-10-25 10:00 | NUR ---
PT SLEEPING IN BED. NO DISTRESS NOTED. CONTINUE TO MONITOR.
--- NOTE | 2020-10-25 12:10 | NUR ---
PT SLEEPING IN BED. NO DISTRESS NOTED. CONTINUE TO MONITOR.
--- NOTE | 2020-10-25 13:31 | NUR ---
BED BATH GIVEN. NEW IV #24 TO LAC INITIATED.
--- NOTE | 2020-10-25 16:50 | NUR ---
PT SLEEPING IN BED. NO DISTRESS NOTED. CONTINUE TO MONITOR.
--- NOTE | 2020-10-25 17:59 | NUR ---
PT REFUSING DINNER, SPITTING MEAL OUT. BED IN LOWEST POSITION. CONTINUE TO MONITOR.
[2020-10-25 19:19] LABS: ANION GAP 10 (6-22 (CALC)); BUN 48 mg/dL (8-23); BUN/CREATININE RATIO 50 (12-20 (CALC)); CARBON DIOXIDE 21 mmol/l (22-30); GFR 53 ML/MIN (>=60 (CALC)); GFR FOR AFR.AMER. > 60 ML/MIN (>=60 (CALC)); POTASSIUM 4.1 mmol/l (3.5-5.1); SODIUM 159 mmol/l (137-146)
[2020-10-25 19:28] LABS: CHLORIDE 132 mmol/l (95-108)
--- NOTE | 2020-10-25 20:00 | NUR ---
PATIENT AWAKE, CONFUSED AND RESTLESS AT THIS TIME, MOANING OUT. ALERT, SPEECH UNINTELLIGIBLE. DOES NOT FOLLOW INSTRUCTIONS. O2 FOUND OFF PATIENT, REAPPLIED O2 AT 8 L HFNC. RESP DYSPNEIC WITH EXERTION. BREATH SOUNDS CLEAR IN UPPER LOBES, DIMINISHED IN BILATERAL BASES. O2 SAT 98% PATIENT INCONTINENT OF LARGE AMOUNT OF URINE, DOV-CARE DONE AND PARTIAL LINEN CHANGE. REPOSITIONED IN BED WITH 2 ASSISTS. SOFT WRIST RESTRAINTS REMOVED AND REAPPLIED FOR NURSING CARE. IV IN LAC WITH NS INFUSING AT 100 ML/HR. ACQUISITION ASSOCIATE SHOWS SR-ST WITH PVC'S. CALL ZHENG IN REACH.
--- NOTE | 2020-10-25 20:30 | NUR ---
RESTING QUIETLY AND CALMLY AT THIS TIME WITH EYES CLOSED.
--- NOTE | 2020-10-25 22:00 | NUR ---
RESTING QUIETLY WITH EYES CLOSED AT THIS TIME. RESP NON-LABORED TA REST. VSS.
[2020-10-26] VITALS (21 sets, daily range): BP systolic 104–169; BP diastolic 55–81
--- NOTE | 2020-10-26 | NUR ---
AWAKE ON ROUNDS. TOOM SOME SIPS OF WATER. VSS. AFEBRILE. SR WITH PVC'S OCC RUNS OF BIGEMINY ON MONITOR.
--- NOTE | 2020-10-26 02:00 | NUR ---
VSS. RESTING WITH EYES CLOSED. CALMA ND COOPERATIVE AT THIS TIME.
--- NOTE | 2020-10-26 04:05 | NUR ---
PATIENT AWAKE MOANING. STATING "HELP ME, HELP ME." MEDICATED WITH MORPHINE ORDERED. PATIENT INCONTINENT. COMPLETE BED BATH AND LINEN CHANGE. PATIENT MORE ALERT THIS MORNING. REQUESTING WATER. ORAL MUCOSA VERY DRY-ASSISTED PATIENT WITH ICE CHIPS. PATIENT STATED SHE IS COLD. PROVIDED WITH WARM BLANKETS AFTER BATH. PATIENT ASSISTED WITH TURNING AND REPOSITIONING.
[2020-10-26 06:01] LABS: HEMATOCRIT 30.3 % (37.0-47.0); HEMOGLOBIN 9.3 g/dl (12.0-16.0); IMMATURE GRANULOCYTES 2.1 % (0.0-5.0); MEAN CELL VOLUME 100.7 fL CALC (80.0-100.0); MEAN CORPUSCULAR HGB 30.9 pG CALC (26.0-32.0); MEAN CORPUSCULAR HGB CONC 30.7 g/dL CAL (32.0-36.0); NEUT# 20.92 thou/uL (2.00-7.15); RED BLOOD COUNT 3.01 mill/uL (4.20-5.60); RED CELL DISTRI WIDTH 13.2 % (11.5-15.5)
--- NOTE | 2020-10-26 06:11 | NUR ---
RESTING WITH EYES CLOSED. RESP EVEN AND ULABORED. O2 SAT 97%
[2020-10-26 06:16] LABS: SGOT/AST 97 u/l (9-36)
[2020-10-26 06:26] LABS: ANION GAP 9 (6-22 (CALC)); BUN 42 mg/dL (8-23); BUN/CREATININE RATIO 45 (12-20 (CALC)); C-REACTIVE PROTEIN 1.5 mg/dL (0-0.9); CARBON DIOXIDE 25 mmol/l (22-30); CHLORIDE 127 mmol/l (95-108); CREATININE 0.9 mg/dL (0.5-1.0); GFR 60 ML/MIN (>=60 (CALC)); GFR FOR AFR.AMER. > 60 ML/MIN (>=60 (CALC)); SODIUM 157 mmol/l (137-146)
--- NOTE | 2020-10-26 07:10 | NUR ---
REPORT RECEIVED FROM ELENI GONZALEZ. PT RESTING IN BED SEMI FOWLERS RIGHT SIDE LEANING WITH EYES CLOSED AND NO SIGNS OF DISTRESS. RESPIRATIONS EVEN AND UNLABORED ON 8L HUMIDIFIED OXYGEN VIA HIGH FLOW OXYGEN. SOFT WRIST RESTRAINTS TO BUE; GOOD CSM TO HANDS. IV FLUIDS INFUSING WITHOUT DIFFICULTY TO LAC IV; SITE APPEARS HEALTHY. PT REMAINS ON AIRBORNE/CONTACT PRECAUTIONS FOR POSITIVE COVID RESULTS. SAFETY MEASURES IN PLACE. CALL LIGHT WITHIN REACH.
--- NOTE | 2020-10-26 08:00 | NUR ---
PT NOW VERY RESTLESS AND ABLE TO REACH TELE LEADS TO REMOVE ALL LEADS, HAS GOWN REMOVED; VERY ANXIOUS AND YELLING OUT HELP REPEATEDLY; SPO2 DECREASED TO 84%. PT REPOSITIONED INTO HIGH FOWLERS AND OXYGEN TITRATED UP TO 15L. WRIST RESTRAINTS RESECURED TO BED AND RECONNECTED TO ALL ATTACHMENTS. SPO2 INCREASED TO 93% WITH OXYGEN. RT AT BEDSIDE FOR EVAL.
--- NOTE | 2020-10-26 09:00 | NUR ---
PO MEDICATIONS GIVEN IN PUDDING AND PT DRANK 3 CUPS OF WATER.
--- NOTE | 2020-10-26 09:37 | NUR ---
LORETA VELASQUEZ, CALLED FOR UPDATE. QUESTIONS ANSWERED TO SATISFACTION.
--- NOTE | 2020-10-26 10:15 | NUR ---
, MYRIAM, CALLED FOR UPDATE. VERY CONCERNED AND ASKING WHY THE MEDICATIONS ARENT WORKING AND ARE THE DOCTORS TAKING CARE OF HER. EXPLAINED CLOSE MONTIORING AND OXYGEN DEMAND; DOES NOT SEEM TO FULLY UNDERSTAND MEDICAL CARE THAT PT IS RECEIVING. INFORMED THAT HE CAN CALL ANY TIME FOR UPDATES AND THAT HE WILL BE NOTIFIED OF ANY CHANGES IN CONDITION.
--- NOTE | 2020-10-26 10:40 | NUR ---
PT NOW RESTING IN SEMI FOWLERS AND MORE RELAXED WITH EYES CLOSED; SPO2 99% ON 15L. NO LONGER PULLING ON RESTRAINTS.
--- NOTE | 2020-10-26 12:00 | NUR ---
PT CONTINUES TO REST WITH EYES CLOSED AND IS RELAXED; OXYGEN ABLE TO BE TITRATED BACK DOWN TO 8L HF NC WHEN SHE IS NOT ANXIOUS. SPO2 98% ON 8L. OFFERED ENSURE AND PT TURNS HEAD AWAY; WILL CONTINUE TO OFFER NUTRITION.
--- NOTE | 2020-10-26 13:39 | NUR ---
INCONTINENT OF LARGE URINE; DOV CARE PROVIDED AND PURWIK CATHETER APPLIED AT THIS TIME. MILK OF MAG GIVEN FOR BOWEL MOVEMENT; TAKEN WITH ENCOURAGMENT.
--- NOTE | 2020-10-26 14:15 | NUR ---
PHYSICAL THERAPY AT BEDSIDE.
--- NOTE | 2020-10-26 17:00 | NUR ---
PT REPOSITIONED IN BED; RESTING QUIETLY WITH NO AGITATION NOTED AT THIS TIME. WRIST RESTRAINTS REMOVED FOR REPOSITIONING. NSR ON THREAD GRINDER TOOL WITH HEART RATE IN THE 90'S. SPO2 97% ON 8L HF NC. SAFETY MEASURES IN PLACE. CALL LIGHT WITHIN REACH.
--- NOTE | 2020-10-26 17:30 | NUR ---
PT POSITIONED INTO HIGH FOWLERS FOR DINNER; PT COOPERATIVE AND RESTRAINTS REMOVED. ASSISTED WITH DINNER; PT DRANK SOME ENSURE AND ATE HALF OF A MAGIC CUP ICE CREAM. ABLE TO MAKE MORE NEEDS KNOWN AND MORE ALERT. PT STATES, "PRETTY COLOR" AND POINTS TO NURSES SHIRT. SAYS "I'M SORRY" AND "IM COLD." 350ML OF URINE EMPTIED FROM PURWIK SUCTION CONTAINER. WILL CONTINUE TO MONITOR.
--- NOTE | 2020-10-26 18:13 | NUR ---
PT HAS NOT MADE ANY ATTEMPTS TO REMOVE EQUIPMENT AND IS RESTING IN SEMI FOWLERS 45 DEGREES AND POSITIONED WITH PILLOWS. RESTING WITH EYES CLOSED. SPO2 95% ON 8L OF OXYGEN.
--- NOTE | 2020-10-26 19:00 | NUR ---
REPORT RECEIVED FROM Marcy DANIELS RN, CARE OF PT ASSUMED AT THIS TIME. PT IS RESTING IN BED, NO APPARENT DISTRESS, APPEARS COMFORTABLE AND DROWSY. CALL ZHENG WITHIN REACH. HEMODYNAMICS STABLE ON MONITOR.
--- NOTE | 2020-10-26 20:15 | NUR ---
PT SEMIFOWLERS IN BED, AWAKE AND CALM. WATCHING TV. PT'S MOUTH IS VERY DRY, WATER OFFERED. PT SIPS APPROX HALF SMALL STYROFOAM CUP OF WATER. SCHEDULED PO MEDICATION ADMINSITERED WHOLE IN PUDDING. PT TOLERATES MEDICATION AND PROCEEDS TO FINISH HALF OF PUDDING CUP. PHYSICAL ASSESMENT COMPLETE. RESPIRATIONS REGULAR AND UNLABORED. LUNGS CLEAR. BOWEL SOUNDS ACTIVE. APICAL PULSE WITH REGULAR RATE AND RYTHM. SR W/ PVC's ON MONITOR. SP02 96% ON 4L/M VIA HIGH FLOW NC. STERILE WATER REFILLED IN HUMIDIFIER CHAMBER. L AC 24G PATENT WITH GOOD BLOOD RETURN. PLAN OF CARE DISCUSSED WITH PATIENT, WILL NEED REINFORCEMENT SECONDARY TO COGNITIVE LIMITATIONS.PT DENIES NEEDS AT THIS TIME. CALL ZHENG WITHIN REACH, AGREES TO CALL PRN.
--- NOTE | 2020-10-26 22:30 | NUR ---
PT LAYING IN BED WITH EYES CLOSED, APPEARS TO BE SLEEPING COMFORTABLY. RESPIRATIONS REGULAR AND UNLABORED. NO APPARENT DISTRESS. CALL ZHENG REMAINS WITHIN REACH.
[2020-10-27] VITALS (16 sets, daily range): BP systolic 87–146; BP diastolic 54–70
--- NOTE | 2020-10-27 | NUR ---
PT LAYING IN BED WITH EYES CLOSED, APPEARS TO BE SLEEPING COMFORTABLY. RESPIRATIONS REGULAR AND UNLABORED. NO APPARENT DISTRESS. CALL ZHENG REMAINS WITHIN REACH.
--- NOTE | 2020-10-27 02:04 | NUR ---
PT LAYING IN BED WITH EYES CLOSED, APPEARS TO BE SLEEPING COMFORTABLY. RESPIRATIONS REGULAR AND UNLABORED. NO APPARENT DISTRESS. CALL ZHENG REMAINS WITHIN REACH.
--- NOTE | 2020-10-27 04:00 | NUR ---
PT LAYING IN BED WITH EYES CLOSED, APPEARS TO BE SLEEPING COMFORTABLY. RESPIRATIONS REGULAR AND UNLABORED. NO APPARENT DISTRESS. CALL ZHENG REMAINS WITHIN REACH.
--- NOTE | 2020-10-27 06:10 | NUR ---
PT LAYING IN BED, SEMIFOWLERS, AWAKE AND DRWOSY. NO CHANGES FROM BASELINE ASSESMENT. REMAINS CALM AND COOPERATIVE. DENIES NEEDS WHEN ASKED. CALL ZHENG REMAINS WITHIN REACH. BED REMAINS LOCKED IN LOW POSITION WITH BEDRAILS UP X2.
--- NOTE | 2020-10-27 06:45 | NUR ---
REPORT RECEIVED FROM [facility]URGA KNOWLES. CARE ASSUMED.
--- NOTE | 2020-10-27 06:55 | NUR ---
LAB AT BEDSIDE AT THIS TIME
[2020-10-27 07:14] LABS: HEMOGLOBIN 9.4 g/dl (12.0-16.0); IMMATURE GRANULOCYTES 1.8 % (0.0-5.0); MEAN CORPUSCULAR HGB 31.3 pG CALC (26.0-32.0); MEAN CORPUSCULAR HGB CONC 31.3 g/dL CAL (32.0-36.0); NEUT# 15.56 thou/uL (2.00-7.15)
[2020-10-27 07:22] LABS: ALKALINE PHOSPHATASE 35 u/l (38-126); BILIRUBIN, TOTAL 0.6 mg/dL (0.0-1.4); BUN 43 mg/dL (8-23); BUN/CREATININE RATIO 46 (12-20 (CALC)); CARBON DIOXIDE 25 mmol/l (22-30); CHLORIDE 118 mmol/l (95-108); CREATININE 0.9 mg/dL (0.5-1.0); GFR 60 ML/MIN (>=60 (CALC)); GFR FOR AFR.AMER. > 60 ML/MIN (>=60 (CALC)); POTASSIUM 4.1 mmol/l (3.5-5.1); SGOT/AST 64 u/l (9-36); TOTAL PROTEIN 4.9 g/dL (6.3-8.2)
[2020-10-27 07:25] LABS: ALBUMIN 2.6 g/dL (3.2-5.0); ANION GAP 7 (6-22 (CALC)); SODIUM 146 mmol/l (137-146)
--- NOTE | 2020-10-27 07:30 | NUR ---
PT RESTING IN BED AWAKE. PT IS ALERT AND ORIENTED X3. PT ABLE TO STATE NAME, THAT SHE IS IN THE HOSPITAL, AND THAT TARIQ IS PRESIDENT. PT ABLE TO STATE AND SONS NAME WELL. WHEN ASKED CITY AND YEAR PT IS UNSURE HOWEVER PT IS EASILY REORIENTED. SHIFT ASSESSMENT COMPLETED AT THIS TIME. IV PATENT X1. IVF STOPPED AT THIS TIME. BILAT UPPER EXTREMITY SWELLING NOTED. DR LUZ NOTIFIED. PT ASSISTED UP TO RECLINER AT BEDSIDE. MAXIMUM ASSIST HOWEVER PT ABLE TO SHUFFLE FEET. PT GIVEN CALL LIGHT AND PROVIDED INSTRUCTION FOR USE. PT VERBALIZED UNDERSTANDING. WILL CONTINUE TO MONITOR.
--- NOTE | 2020-10-27 07:33 | NUR ---
10/26/20 PT note Patient is sesen for bedside sitting and deep breathing and coughing. Although she remains confused, she does follow simple requests and coughs on command. Her o2 is via nasal cannula and her sats remained above 93. She is far less agitated and is able to maintain bedside sitting for several minutes. Am pac has improved to 11 and she would do well in extended care for additional rehab to promote independence, monitor her cardiovascular status and increase her function.
--- NOTE | 2020-10-27 08:00 | NUR ---
PT SET UP FOR AM MEAL AT THIS TIME.
--- NOTE | 2020-10-27 08:00 | NUR ---
DR LUZ AT BEDSIDE.
--- NOTE | 2020-10-27 08:20 | NUR ---
EVA KAN CALLED. UPDATE PROVIDED. CONNECTED TO CORDLESS AND PROVIDED TO PATIENT.
--- NOTE | 2020-10-27 10:00 | NUR ---
PHONED NURSES STATION FOR UPDATE AND TO SPEAK WITH PATIENT. CONNECTED TO CORDLESS PHONE AND GAVE TO PATIENT. PT REMAINS UP IN RECLINER AT BEDSIDE. CALL LIGHT IN REACH. WILL CONTINUE TO MONITOR.
--- NOTE | 2020-10-27 12:00 | NUR ---
PT SITTING UP IN CHAIR AT THIS TIME. RESP ARE EVEN AND UNLABORED. NO DISTRESS NOTED. CALLLIGHT IN REACH. WILL CONTINUE TO MONITOR.
--- NOTE | 2020-10-27 14:10 | NUR ---
PT RESTING IN CHAIR WITH EYES CLOSED. RESP ARE EVEN AND UNLABROED. NO DISTRESS NOTED. CALL LIGHT IN REACH. WILL CONTINUE TO MONITOR.
--- NOTE | 2020-10-27 15:25 | NUR ---
PT AT BEDSIDE AT THIS TIME.
--- NOTE | 2020-10-27 16:00 | NUR ---
PT BACK IN BED AT THIS TIME. PT HAD LARGE INCONTINENCE. PT CLEANSED. PT ABLE TO ASSIST AND TURN SIDE TO SIDE. RESP ARE EVEN AND UNLABORED. NO DISTRESS NOTED. CALL LIGHT IN REACH. WILL CONTINUE TO MONITOR.
--- NOTE | 2020-10-27 16:05 | NUR ---
PT WAS SEEN TODAY FOR REGULAR P.T. TREATMENT. PT WAS DISORIENTED AND WAS UNABLE TO CONVERSE W/ ME, SHE WAS ABLE TO FOLLOW INSTRUCTIONS THOUGH. SHE WAS SEEN RESTING IN THE RECLINER WITH LEG REST ELEVATED. THERAPIST OFFERED MOD A TO POSITION PT PRIOR TO STANDING. PT HAD MULTIPLE ATTEMPTS TO STAND UP HOWEVER FAILED TO DO SO. SHE WAS GIVEN MAX A OF 3 TO STS AND BE REPOSITIONED IN THE BED. NOTED RALES WHILE COUGHING AND SOB. AMPAC IS UNCHANGED. PT WILL BENEFIT FROM [facility].
--- NOTE | 2020-10-27 16:23 | NUR ---
OCCUPATIONAL THERAPIST AT BEDSIDE AT THIS TIME.
--- NOTE | 2020-10-27 17:25 | NUR ---
o2 decreased to 3l nc. pt o2 sats remain 99-100%
--- NOTE | 2020-10-27 17:45 | NUR ---
pt assisted with eveninbg meal. pt ate about 25% of meal. drank ensure and 3 glasses of water. pt conversing throughout. pt remains alert and oriented x3. resp are even and unblabored. no distress noted. call light in reach. will continue to montior.
--- NOTE | 2020-10-27 19:00 | NUR ---
RECEIVED REPORT FROM NURSE BOYD PATIENT APPEARS TO BE RESTING IN BED, NOT IN DISTRESS. HOOKED TO O2 @ 3LPM VIA NC, CALL LIGHT AT REACH.
--- NOTE | 2020-10-27 20:14 | NUR ---
PATIENT RESTING IN BED, ALERT ORIENTED WITH SALINE LOCK ON LAC PATENT AND FLUSHES WELL, IV SITE APPEARS HEALTHY REMAINS ON O2 @ 3LPM NC, BREATHING UNLABORED AT THIS TIME, WITH PUREWICK DRAINING CHARLIE COLORED URINE, HYPOACTIVE BOWEL SOUNDS, WEAK PERIPHERAL PULSES, REMAINS ON AIR/CONTACT PRECAUTION, CALL LIGHT AT REACH.
--- NOTE | 2020-10-27 21:00 | NUR ---
MOUTH CARE PROVIDED AT THIS TIME, PATIENT C/O OF BEING COLD, EXTRA BLANKET PROVIDED CURRENTLY RESTING ON SEMI FOWLERS POSITION, CALL LIGHT AT REACH.
--- NOTE | 2020-10-27 22:08 | NUR ---
PATIENT APPEARS TO BE RESTING WITH EYES CLOSED, NOT IN DISTRESS, CALL LIGHT AT REACH WILL CONTINUE TO MONITOR.
[2020-10-28] VITALS (15 sets, daily range): BP systolic 118–144; BP diastolic 54–73
--- NOTE | 2020-10-28 00:05 | NUR ---
PATIENT APPEARS TO BE SLEEPING BREATHING EVEN UNLABORED REMAINS ON O2 @ 3LPM VIA NC, CALL LIGHT AT REACH.
--- NOTE | 2020-10-28 02:00 | NUR ---
PATIENT RESTING IN BED WITH EYES CLOSED, BREATHING EVEN UNLABORED CALL LIGHT AR REACH.
--- NOTE | 2020-10-28 04:00 | NUR ---
PATIENT POX 88-89 % RAISED O2 @ 4LPM, MAINTAINED 91% ABOVE POX, WILL CONTINUE TO MONITOR.
--- NOTE | 2020-10-28 04:33 | NUR ---
PATIENT RESTING IN BED, WITH EYES CLOSED, REMAINS ON O2 @ 3LPM VIA NC, BREATHING UNLABORED PATIENT REPOSTIONED CALL LIGHT AT REACH.
--- NOTE | 2020-10-28 05:20 | NUR ---
[facility] PROVIDE, NEW PUREWICK IN PLACE, PATIENT REPOSITIONED, CALL LIGHT AT REACH.
--- NOTE | 2020-10-28 06:07 | NUR ---
PATIENT APPEARS TO BE SLEEPING WITH EYES CLOSED,NOT IN DISTRESS CALL LIGHT AT REACH.
[2020-10-28 06:22] LABS: HEMOGLOBIN 10.5 g/dl (12.0-16.0); IMMATURE GRANULOCYTES 1.3 % (0.0-5.0); MEAN CELL VOLUME 98.3 fL CALC (80.0-100.0); MEAN CORPUSCULAR HGB 30.3 pG CALC (26.0-32.0); MEAN CORPUSCULAR HGB CONC 30.9 g/dL CAL (32.0-36.0); NEUT# 15.45 thou/uL (2.00-7.15); RED BLOOD COUNT 3.46 mill/uL (4.20-5.60); RED CELL DISTRI WIDTH 12.6 % (11.5-15.5)
--- NOTE | 2020-10-28 06:45 | NUR ---
REPORT RECEIVED FROM MELANIE KNOWLES. CARE ASSUMED.
[2020-10-28 06:54] LABS: ALBUMIN 2.7 g/dL (3.2-5.0); BILIRUBIN, TOTAL 0.8 mg/dL (0.0-1.4); C-REACTIVE PROTEIN 4.4 mg/dL (0-0.9); CREATININE 1.2 mg/dL (0.5-1.0); POTASSIUM 4.4 mmol/l (3.5-5.1); TOTAL PROTEIN 5.2 g/dL (6.3-8.2)
--- NOTE | 2020-10-28 07:15 | NUR ---
PT RESTING IN BED AWAKE. PT IS ALERT AND ORIENTED X3. SHIFT ASSESSMENT COMPLETED AT THIS TIME. IV PATENT X1. CALL LIGHT IN REACH. WILL CONTINUE TO MONITOR.
--- NOTE | 2020-10-28 08:34 | NUR ---
EVA KAN PHONED FOR UPDATE. UPDATE PROVIDED
--- NOTE | 2020-10-28 09:30 | NUR ---
PT REPOSITIONED IN BED AT THIS TIME. PT IS ALERT AND ORIENTED X3. RESP ARE EVEN AND UNLABORED. NO DISTRESS NOTED. CALL LIGHT IN REACH. WILL CONTINUE TO MONITOR.
--- NOTE | 2020-10-28 12:00 | NUR ---
PT SITTING UP IN BED EATING LUNCH. RESP ARE EVEN AND UNLABORED. NO DISTRESS NOTED. CALL LIGHT IN REACH. WILL CONTINUE TO MONITOR.
--- NOTE | 2020-10-28 14:00 | NUR ---
PT RESTING IN BED WITH EYES CLOSED. RESP ARE EVEN AND UNLABORED. NO DISTRESS NTOED. CALLLIGHT IN REACH. WILL CONTINUE TO MONITOR.
--- NOTE | 2020-10-28 15:00 | NUR ---
ENEMA GIVEN PER MD ORDER.
--- NOTE | 2020-10-28 15:25 | NUR ---
PHYSICAL THERAPY AT BEDSIDE.
--- NOTE | 2020-10-28 15:51 | NUR ---
AMPAC: 7 POINTS O2 BETWEEN 85-93% DURING THE TX. PT WAS DEPENDENT ON TURNING AND ROLLING IN BED. SUPINE TO SIT REQUIRED MAX A WITH VERBAL INSTRUCTIONS. PT FAILED TO MAINTAIN BALANCE DURING STATIC SITTING AND WAS FALLING SIDEWAYS ONTO BED, THERAPIST THEN PROVIDED MOD A TO KEEP PT FROM FALLING. SHE WAS UNABLE TO SIT TO STAND AT THIS TIME. WHILE IN SITTING, THERAPIST PROVIDED POSTURAL DRAINAGE USING CUPPING TECHNIQUE. PT COUGHED WITHOUT DESAT O2 LEVEL RETURNED TO 90S. SHE WAS REPOSITIONED ON BED WITH MAX A, WITH HEAD ELEVATED TO 45 DEG.
--- NOTE | 2020-10-28 16:20 | NUR ---
PT RESTING IN BED WITH EYES CLOSED. RESP ARE EVEN AND UNLABORED. NO DISTRESS NTOED. CALL LIGHT IN REACH. WILL CONTINUE TO MONITOR
--- NOTE | 2020-10-28 16:44 | NUR ---
COMPLETED BED BATH GIVEN. LINENS CHANGED. PT ASSISTED UP TO RECLINER AT BEDSIDE. PT TOLERATED TRANSFER WELL. PT CONTINUES TO BE A MAXIMUM ASSIST. CALL LIGHT IN REACH. WILL CONTINUE TO MONITOR.
--- NOTE | 2020-10-28 17:45 | NUR ---
pt assisted up to bsc for bm. enema contents in bsc. no bm
--- NOTE | 2020-10-28 20:00 | NUR ---
SITTING UP IN RECLINER WITH LEGS ELEAVTED. PATIENT IS AWAKE, ALERT AND ORIENTED X3. SPEECH IS CLEAR WITH APPROPRIATE RESONSE TO QUESTIONS. FOLLOWS DIRECTIONS. BREATH SOUNDS CLEAR IN UPPER LOBES AND DIMINISHED IN BASES. GENERALIZED EDEMA PRESENT. #[address]. MONITOR SR. DISCUSSED PLAN OF CARE. DENIES NEEDS AT THIS TIME. CALLBELL IN REACH.
--- NOTE | 2020-10-28 21:14 | NUR ---
PATIENT ABLE TO SWALLOW HER MEDICATION WITHOUT DIFFICULTY. USED THE INCENTIVE SPROMETER, UP TO 1000 ML. TRANSFERRED TO BED SAFELY X2 ASSIST. PUREWICK IN PLACE.
--- NOTE | 2020-10-28 22:00 | NUR ---
RESTING WITH EYES CLOSED. RESP NON-LABORED. VSS.
[2020-10-29] VITALS (10 sets, daily range): BP systolic 106–142; BP diastolic 55–70
--- NOTE | 2020-10-29 | NUR ---
RESTING WITH EYES CLOSED. VSS. O2 SAT 96-98% ON O2 3 L NC.
--- NOTE | 2020-10-29 02:00 | NUR ---
ASLEEP. RESP NON-LABORED. VSS. SR ON MONITOR.
--- NOTE | 2020-10-29 04:00 | NUR ---
SLEEPING SOUNDLY. VSS. RESP NON-LABORED.
--- NOTE | 2020-10-29 06:00 | NUR ---
BED BATH GIVEN. PATIENT SLEPT WELL DURING THE NIGHT. VSS. RESP NON-LABORED. O2 ON AT 3 L NC. SR ON MONITOR. PATIENT IS ORIENTED X3. DOES NOT RECAL EVENTS OF PAST WEEK. CALM AND COOPERATIVE. PUREWICK IN PLACE, DRAINING YELLOW URINE.
[2020-10-29 06:10] LABS: HEMATOCRIT 28.1 % (37.0-47.0); HEMOGLOBIN 8.9 g/dl (12.0-16.0); IMMATURE GRANULOCYTES 1.1 % (0.0-5.0); MEAN CELL VOLUME 97.6 fL CALC (80.0-100.0); MEAN CORPUSCULAR HGB 30.9 pG CALC (26.0-32.0); MEAN CORPUSCULAR HGB CONC 31.7 g/dL CAL (32.0-36.0); NEUT# 10.31 thou/uL (2.00-7.15); RED BLOOD COUNT 2.88 mill/uL (4.20-5.60); RED CELL DISTRI WIDTH 12.8 % (11.5-15.5)
[2020-10-29 06:34] LABS: ALBUMIN 2.3 g/dL (3.2-5.0); ALKALINE PHOSPHATASE 35 u/l (38-126); ANION GAP 7 (6-22 (CALC)); BILIRUBIN, TOTAL 0.7 mg/dL (0.0-1.4); BUN 42 mg/dL (8-23); BUN/CREATININE RATIO 43 (12-20 (CALC)); CARBON DIOXIDE 25 mmol/l (22-30); CHLORIDE 116 mmol/l (95-108); GFR 53 ML/MIN (>=60 (CALC)); GFR FOR AFR.AMER. > 60 ML/MIN (>=60 (CALC)); POTASSIUM 4.1 mmol/l (3.5-5.1); SGOT/AST 51 u/l (9-36); SODIUM 144 mmol/l (137-146); TOTAL PROTEIN 4.5 g/dL (6.3-8.2)
--- NOTE | 2020-10-29 06:45 | NUR ---
REPORT RECEIVED FROM ERIKA KNOWLES. CARE ASSUMED.
--- NOTE | 2020-10-29 07:45 | NUR ---
PT RESTING IN BED AWAKE. PT IS ALERT AND ORIENTED X3. SHIFT ASSESSMENT COMPLETED AT THIS TIME. IV PATENT X1. PT ASSISTED UP TO RECLINER AT BEDSIDE. PT TOLERATED TRANSFER WELL. CALL LIGHT IN REACH. WILL CO NTINUE TO MONITOR.
--- NOTE | 2020-10-29 08:40 | NUR ---
DR LOPEZ AT BEDSIDE AT THIS TIME.
--- NOTE | 2020-10-29 08:43 | NUR ---
PT SITTING UP IN RECLINER CONVERSING ON PHONE WITH SON LORETA. EATING MINIMAL OF BREAKFAST. CALL LGT IN REACH. WILL CONTINUE TO MONITOR.
--- NOTE | 2020-10-29 10:00 | NUR ---
PT SITTING UP IN RECLINER AT BEDSIDE. RESP ARE EVEN AND UNLABORED. NO DISTRESS NOTED. CALL LIGHT IN REACH. WILL CONTINUE TO MONITOR.
--- NOTE | 2020-10-29 10:45 | NUR ---
PHYSICAL THERAPY AT BEDSIDE TO WORK WITH PATIENT. PT ASSISTED HER TO BSC THEN BACK TO BED. CALL LIGHT IN REACH. WILL CONTINUE TO [facility]
--- NOTE | 2020-10-29 14:00 | NUR ---
PT RESTING IN BED WITH EYES CLOSED. RESP ARE EVEN AND UNLABORED. NO DISTRESS NTOED. VSS ON MONITOR. CALL LGT IN REACH. WILL CONTINUE TO [facility].
--- NOTE | 2020-10-29 15:40 | NUR ---
Patient is much improved today. She presents up in bedside chair with the help of nursing. Her O2 is in place. She is following commands and reporting her needs. She is able to perform sit to stand repeatedly with mod assist of 1 limited by desaturation to 85 but recovering within 2 min with rest. She also was able to take 2-3 steps with max assist of 1. She also performed DBE attempting to hold her breath for 4 seconds. This was nearly impossible for her. she was able to cough on command and had a non productive dry cough. Am Pac has improved to 11 and she is still appropriate for extended care facility to work on strengthening and endurance and to improve her independence
--- NOTE | 2020-10-29 15:47 | NUR ---
PT RESTING IN BED AWAKE. RESP ARE EVEN AND UNLABORED. NO DISTRESS NOTED. CALL LIGHT IN REACH. WILL CO NTINUE TO MONITOR.
--- NOTE | 2020-10-29 17:45 | NUR ---
PT ASSISTED UP TO BSC FOR VOID AND BM. PT HAD MODERATED HARD BM. PT CLEANSED AND ASSISTED BACK TO BED
--- NOTE | 2020-10-29 19:45 | NUR ---
PATIENT RESTING IN BED ON ROUNDS. RESP NON-LABORED. USING O2 AT 3 L NC. O2 SAT MID 90'S. PATIENT VERBALIZES UNDERSTANDING OF TRANSFER TO M/S. REPORT CALLED TO HOWIE/ELENI.
--- NOTE | 2020-10-29 20:00 | NUR ---
TRANSFERRED TO ROOM 290 VIA BED WITH O2 ON AT L NC. BELONGINGS WITH PATIENT.
--- NOTE | 2020-10-29 20:15 | NUR ---
PT ARRIVED TO MED SURG VIA BED ACCOMPANIED BY ICU NURSE AND AIDE. PT APPEARS TO BE IN STABLE CONDITION AT THIS TIME. NO S/O DISTRESS NOTED. PT ORIENTED TO ROOM, LIGHTS, TV AND BED. CALL SYSTEM AND LIGHT ORIENTED TO PT. PT ASSESSMENT COMPLETED AND V/S ASSESSED ALSO AT THIS TIME. PT ARRIVED ON 3L OXYGEN NC. WILL MONITOR FOR NEED AND FOR MAINTAINED OXYGEN LEVELS.
--- NOTE | 2020-10-29 22:23 | NUR ---
PT MEDICATED ORDERS PROVIDE. PO FLUIDS PROVIDED. PT IS ALSO DRINKING AN ENSURE AT THIS TIME. SHE DENIES ANY NEEDS AT THIS TIME. CALL LIGHT AT SIDE AND PT ENCOURAGED TO CALL NEEDS ARISE. LIGHTS TURNED DOWN TO NIGHT LIGHT LEVEL FOR COMFORT AND SAFETY.
[2020-10-30 00:10] VITALS: BP 107/66
--- NOTE | 2020-10-30 00:14 | NUR ---
VOTATOR MACHINE OPERATOR IS IN OBTAINING V/S AT THIS TIME. PT DENIES ANY NEEDS FROM ME AT, AIDE IN WITH PT AND CALL LIGHT IS AT SIDE.
[2020-10-30 04:05] VITALS: BP 117/60
[2020-10-30 04:55] LABS: HEMATOCRIT 29.5 % (37.0-47.0); HEMOGLOBIN 9.5 g/dl (12.0-16.0); IMMATURE GRANULOCYTES 0.9 % (0.0-5.0); MEAN CELL VOLUME 97.4 fL CALC (80.0-100.0); MEAN CORPUSCULAR HGB 31.4 pG CALC (26.0-32.0); MEAN CORPUSCULAR HGB CONC 32.2 g/dL CAL (32.0-36.0); NEUT# 10.48 thou/uL (2.00-7.15); RED BLOOD COUNT 3.03 mill/uL (4.20-5.60); RED CELL DISTRI WIDTH 12.9 % (11.5-15.5)
[2020-10-30 05:29] LABS: ANION GAP 8 (6-22 (CALC)); BUN 35 mg/dL (8-23); BUN/CREATININE RATIO 36 (12-20 (CALC)); C-REACTIVE PROTEIN 5.1 mg/dL (0-0.9); CARBON DIOXIDE 27 mmol/l (22-30); CHLORIDE 112 mmol/l (95-108); GFR 53 ML/MIN (>=60 (CALC)); GFR FOR AFR.AMER. > 60 ML/MIN (>=60 (CALC)); POTASSIUM 4.2 mmol/l (3.5-5.1); SODIUM 143 mmol/l (137-146)
--- NOTE | 2020-10-30 05:40 | NUR ---
PT CLEANED OF INCONTINENT URINE. PUREWICK PLACED AT THIS TIME. PT TOLERATED WELL. NO S/O DISTRESS NOTED.
--- NOTE | 2020-10-30 08:07 | NUR ---
Pt screened by ST on 10/30/20 at 8:00. SYSTEMS LEAD recommends further evaluation if physician is in agreement.
[2020-10-30 08:19] VITALS: BP 133/61
--- NOTE | 2020-10-30 08:19 | NUR ---
RECIEVED REPORT FROM ELENI DENISE. PT RESTING IN SEMI FOWLERS POSITION UPON ENTERING ROOM. INTRODUCED SELF TO PT AND DISCUSSED POC. PT IS A/O X3. ASSESSMENT AND VITALS COMPLETED. BP 133/961, HR 99, O2 88% ON 5L NC. O2 INCREASED TO 7.5L NC, O2 SAT 92%. RESPIRATIONS ARE EVEN AND UNLABORED. HEART RHYTHM IS NORMAL WITH TELE IN PLACE. BOWEL SOUNDS ARE ACTIVE IN ALL QUADRANTS, LAST REPORTED BM 10/29/20. RADIAL PULSES STRONG. PEDAL PULSES WEAK. #20G IN RAC FLUSHED, SITE APPEARS HEALTHY AND PATENT. PT DENIES OF ANY PAINS OR NEEDS AT THIS TIME. ALL SAFETY PRECAUTIONS ARE IN PLACE WITH CALL LIGHT IN REACH.ISOALTION PRECAUTIONS IN PLACE. WILL CONTINUE TO MONITOR
--- NOTE | 2020-10-30 10:02 | NUR ---
BIOFIRE OBTAINED. PT TOLERATED WELL.
[2020-10-30] MEDS ORDERED: CARDIZEM CD240 MG PO (11:13)
[2020-10-30] MEDS ORDERED: PANTOPRAZOLE SO40 M1 PO (11:14)
[2020-10-30] MEDS ORDERED: QUETIAPINE FUMA25 MG PO (11:15)
[2020-10-30] MEDS ORDERED: OXY1 (11:27)
[2020-10-30 11:51] VITALS: BP 128/66
--- NOTE | 2020-10-30 12:12 | NUR ---
PT SLEEPING IN LOW FOWLERS POSITION. RESPIRATIONS ARE EVEN AND UNLABORED ON 5L NC. NO SIGNS OF ANY PAINS OR DISCOMFORTS AT THIS TIME. ALL SAFETY PRECAUTIONS ARE IN PLACE WITH CALL LIGHT IN REACH. WILL CONTINUE TO MONITOR.
[2020-10-30 14:30] VITALS: BP 136/74
--- NOTE | 2020-10-30 16:10 | NUR ---
PT SLEEPING IN LOW FOWLERS POSITION, AWAKES EASILY. RESPIRATIONS ARE EVEN AND UNLABORED ON 5L NC. PT DENIES OF ANY PAINS OR DISCOMFORTS. PUREWHICK IN PLACE, MED SUCTION. PT DENIES OF ANY NEEDS. ALL SAFETY AND ISOLATION PRECAUTIONS ARE IN PLACE WITH CALL LIGHT IN REACH. WILL CONTINUE TO MONITOR
[2020-10-30 19:20] VITALS: BP 128/68
--- NOTE | 2020-10-30 19:32 | NUR ---
REPORT FROM VIVIANE RODRIGUES. ASSUMED PT CARE.
--- NOTE | 2020-10-30 20:44 | NUR ---
PT NOTED RESTING IN BED. NO APPARENT DISTRESS NOTED. RESPIRATION EVEN AND UNLABORED. ALERT AND ORIENTED. O2 @ 5L/M VIA NC. LARGE AREAS OF BRUISING NOTED TO ABD. PT C/O BEING COLD. AFEBRILE, WARM BLANKETS PROVIDED. DENIES ANY PAIN OR SOB. DISCUSSED POC. PT VERBALIZED UNDERSTANDING. CALL LIGHT WITHIN REACH. WILL CONTINUE TO MONITOR.
[2020-10-31] VITALS (7 sets, daily range): BP systolic 103–156; BP diastolic 58–70
--- NOTE | 2020-10-31 00:03 | NUR ---
PT RESTING IN BED WITH EYES CLOSED. NO APPARENT DISTRESS NOTED. RESPIRATIONS EVEN AND UNLABORED. CALL LIGHT WITHIN REACH. WILL CONTINUE TO MONITOR.
--- NOTE | 2020-10-31 04:43 | NUR ---
PT RESTING IN BED WITH EYES CLOSED. NO APPARENT DISTRESS NOTED. RESPIRATIONS EVEN AND UNLABORED. CALL LIGHT WITHIN REACH. WILL CONTINUE TO MONITOR.
[2020-10-31 05:44] LABS: HEMATOCRIT 28.5 % (37.0-47.0); MEAN CELL VOLUME 98.3 fL CALC (80.0-100.0); MEAN CORPUSCULAR HGB CONC 31.6 g/dL CAL (32.0-36.0); RED BLOOD COUNT 2.9 mill/uL (4.20-5.60); RED CELL DISTRI WIDTH 13.2 % (11.5-15.5)
[2020-10-31 06:11] LABS: ANION GAP 7 (6-22 (CALC)); BUN 28 mg/dL (8-23); BUN/CREATININE RATIO 32 (12-20 (CALC)); CARBON DIOXIDE 26 mmol/l (22-30); CHLORIDE 111 mmol/l (95-108); CREATININE 0.9 mg/dL (0.5-1.0); GFR 60 ML/MIN (>=60 (CALC)); GFR FOR AFR.AMER. > 60 ML/MIN (>=60 (CALC)); MAGNESIUM 2.2 mg/dL (1.6-2.3); POTASSIUM 4.1 mmol/l (3.5-5.1); SODIUM 139 mmol/l (137-146)
--- NOTE | 2020-10-31 07:00 | NUR ---
RECIEVED REPORT FROM LILIA BOYER.
--- NOTE | 2020-10-31 08:41 | NUR ---
PT SITTING UP IN CHAIR UPON ENTERING ROOM. INTRODUCED SELF TO PT AND DISCUSSED POC. PT IS A/O X3. ASSESSMENT AND VITALS COMPLETED. BP 134/63, HR 99, O2 93% ON 5L NC. RESPIRATIONS ARE EVEN AND UNLABORED WITH NO DISTRESS NOTED. HEART RHYTHM IS NORMAL WITH TELE IN PLACE SR PER ER MONITORING. BOWEL SOUNDS ACTIVE, LAST REPORTED BM 10/29/20. RADIAL PULSES STRONG. PEDAL PULSES WEAK. #20G IN RAC FLUSHED, SITE APPEARS HEATLHY AND PATENT. SKIN IS WARM AND INTACT WITH NO BREAKDOWN NOTED. SCATTERED BRUISING NOTED. 2+ EDEMA NOTED TO LEFT ARM.PT DENIES OF ANY PAINS OR DISCOMFORTS. ALL SAFETY PRECAUTIONS ARE IN PLACE WITH CALL LIGHT IN REACH. ISOLATION AND SAFTEY PRECAUTIONS ARE IN PLACE.WILL CONTINUE TO MONITOR
--- NOTE | 2020-10-31 11:30 | NUR ---
PT INCONTIENT OF URINE AT THIS TIME. QUALITATIVE FIELD PROJECT MANAGER AND GIORGIO BEARDEN ASSISTED PT WITH PARTIAL BED BATH. RESPIRATIONS REMAINS EVEN AND UNLABORED ON 5L NC.TELE MONITORING IN PLACE. PT DENIES OF ANY PAINS OR NEEDS AT THIS TIME. ALL SAFETY AND ISOLATION PRECAUTIONS ARE IN PLACE WITH CALL IN REACH . WILL CONTINUE TO MONITOR
--- NOTE | 2020-10-31 12:46 | NUR ---
PT RESTING IN SEMI FOWLERS POSITIO N. RESPIRATIONS ARE EVEN AND UNLABORED ON 4L NC. PT DENIES OF ANY PAINS OR DISCOMFORTS AT THIS TIME. ALL SAFTEY AND ISOLATION PRECAUTIONS ARE IN PLACE. WILL CONTINUE TO MONITOR
--- NOTE | 2020-10-31 14:20 | NUR ---
DR METCALF AND MICHAEL, ANRP AT BEDSIDE
--- NOTE | 2020-10-31 16:17 | NUR ---
PT RESTING IN SEMI FOWLERS POSITION. RESPIRATIONS ARE EVEN AND UNLABORED ON 4L NC. TELE MONITORING IN PLACE. PT DENIES OF ANY PAINS OR DISCOMFORTS AT THIS TIME. ALL SAFETY AND ISOLATION PRECAUTIONS ARE IN PLACE WITH CALL LIGHT IN REACH. WILL CONTINUE TO MONITOR
--- NOTE | 2020-10-31 18:45 | NUR ---
SON CALLED ASKING ABOUT PT PHONE TO BE CHARGED. NO PHONE IN ROOM.
--- NOTE | 2020-10-31 20:06 | NUR ---
PHYSICAL ASSESMENT COMPLETE. PT CURRENTLY DENIES PAIN OR DISCOMFORT. SCHEDULED MEDICATIONS AND PRN MEDICATION ADMINISTERED, SEE E-MAR. PT DENIES ANY NEEDS AT THIS TIME. PLAN OF CARE REVIEWED, PT DENIES QUESTIONS, VERBALIZES UNDERSTANDING. ITEMS WITHIN REACH, BED LOCKED IN LOW POSITION W/ BEDRAILS UP X2. CALL ZHENG WITHIN REACH, AGREES TO CALL PRN.
--- NOTE | 2020-11-01 00:06 | NUR ---
PT LAYING IN BED WITH EYES CLOSED, APPEARS TO BE SLEEPING, APPEARS COMFORTABLE AND IN NO DISTRESS. RESPIRATIONS REGULAR AND UNLABORED. ITEMS REMAIN WITHIN REACH, CALL ZHENG REMAINS WITHIN REACH. BED REMAINS LOCKED AND IN LOW POSITION WITH BEDRAILS UP X2. WILL CONTINUE TO MONITOR.
[2020-11-01 04:00] VITALS: BP 126/73
--- NOTE | 2020-11-01 04:06 | NUR ---
PT RESTING IN BED, NO SIGNS OF DISTRESS NOTED, RESP EVEN AND UNLABORED. PT VOICES NO NEEDS OR COMPLAINTS AT THIS TIME. CALL LIGHT IN REACH, CONTINUE TO MONITOR.
[2020-11-01 06:11] LABS: HEMATOCRIT 30.7 % (37.0-47.0); HEMOGLOBIN 9.9 g/dl (12.0-16.0); IMMATURE GRANULOCYTES 0.9 % (0.0-5.0); MEAN CELL VOLUME 98.4 fL CALC (80.0-100.0); MEAN CORPUSCULAR HGB 31.7 pG CALC (26.0-32.0); MEAN CORPUSCULAR HGB CONC 32.2 g/dL CAL (32.0-36.0); NEUT# 8.02 thou/uL (2.00-7.15); RED BLOOD COUNT 3.12 mill/uL (4.20-5.60); RED CELL DISTRI WIDTH 13.4 % (11.5-15.5)
[2020-11-01 06:39] LABS: ALBUMIN 2.6 g/dL (3.2-5.0); ALKALINE PHOSPHATASE 39 u/l (38-126); ANION GAP 6 (6-22 (CALC)); BILIRUBIN, TOTAL 0.6 mg/dL (0.0-1.4); BUN 33 mg/dL (8-23); BUN/CREATININE RATIO 35 (12-20 (CALC)); CARBON DIOXIDE 29 mmol/l (22-30); CHLORIDE 108 mmol/l (95-108); CREATININE 0.9 mg/dL (0.5-1.0); GFR 60 ML/MIN (>=60 (CALC)); GFR FOR AFR.AMER. > 60 ML/MIN (>=60 (CALC)); POTASSIUM 4.2 mmol/l (3.5-5.1); SGOT/AST 50 u/l (9-36); SODIUM 139 mmol/l (137-146); TOTAL PROTEIN 5.1 g/dL (6.3-8.2)
--- NOTE | 2020-11-01 08:00 | NUR ---
RECIEVED REPORT FROM ELENI DAVE. PT RESTING IN SEMI FOWLWERS POSITION. INTRODUCED SELF TO PT AND DISCUSSED POC. PT IS A/O X3. ASSESSMENT AND VITALS COMPLETED. RESPRIATIONS ARE EVEN AND UNLABORED ON 4L NC. HEART RHYTHM NORMAL WITH TELE MONITORING IN PLACE. BOWEL SOUNDS ARE ACTIVE, LAST REPORTED BM 10/29/20. MIRLAX ADMINISTERED TO ASSIST WITH BM. #20G IN RAC FLUSHED, SITE APPEARS HEALTHY AND PATENT. SKIN IS WARM AND INTACT WITH NO BREAKDOWN NOTED. BRUISING TO BILATERAL HIPS AND ARMS NOTED. 1+ EDEMA TO LEFT ARM NOTED. PT DENIES OF ANY PAINS OR DISCOMFORTS AT THIS TIME. ALL SAFETY AND ISOLATION PRECAUTIONS ARE IN PLACE. WILL CONTINUE TO MONITOR
[2020-11-01 08:05] VITALS: BP 124/71
--- NOTE | 2020-11-01 09:30 | NUR ---
CROZE MACHINE OPERATOR AND GIORGIO BEARDEN ASSISTED PT HERIBERTO IN CHAIR
--- NOTE | 2020-11-01 10:14 | NUR ---
IRWIN,ANRP AT BEDSIDE
--- NOTE | 2020-11-01 11:46 | NUR ---
PT SLEEPING IN CHAIR. RESPIRATIONS ARE EVEN AND UNLABORED ON 4L NC WITH NO DISTRESS NOTED.TELE MONITOING IN PLACE. NO SIGNS OF ANY PAINS OR DISCOMFORTS. ALL SAFETY AND ISOALTION PRECAUTIONS ARE IN PLACE WIHT CALL LIGHT IN REACH. WILL CONTINUE TO MONITOR
[2020-11-01 11:52] VITALS: BP 126/64
[2020-11-01 15:30] VITALS: BP 122/72
--- NOTE | 2020-11-01 16:00 | NUR ---
PT SLEEPING IN LOW FOWLERS POSITION. RESPIRATIONS ARE EVEN AND UNLABORED WITH NO SIGNS OF DISTRESS NO 4L NC.TELE MONITORING IN PLACE. NO S/S OF ANY PAINS OR DISCOMFORTS. ALL SAFETY AND ISOALTION PRECAUTIONS REAMINS. WILL CONTINUE TO MONITOR
[2020-11-01 20:00] VITALS: BP 116/59
[2020-11-02] VITALS: BP 118/62
[2020-11-02 04:00] VITALS: BP 133/54
--- NOTE | 2020-11-02 08:57 | NUR ---
DR LOPEZ AND Rhett ANNE APRN AT BEDSIDE DISCUSSING POC
[2020-11-02 09:18] VITALS: BP 141/67
--- NOTE | 2020-11-02 09:18 | NUR ---
PT SITTING IN BED. A&O X2, REORIENTATION NEEDED FOR CURRENT TIME. PT DENIES ANY PAIN AT THIS TIME. O2 VIA NC @4L IN PLACE SUSTAINING AT 97%, O2 TITRATED DOWN TO 2L NC, O2 SUSTAINING 96-97%, WILL MONITOR O2 CLOSELY FOR ANY TITRATION NEEDS. #[address], HEALTHY AND PATENT. MANAGER OF BUSINESS IN PLACE. PUREWICK SET TO SUCTION. CALL LIGHT IN REACH. CONTINUE TO MONITOR.
[2020-11-02 11:05] VITALS: BP 123/58
--- NOTE | 2020-11-02 11:15 | NUR ---
PT note Patient is seen for repeated sit to stnad and demonstrated the ability to ambulate 4-5 feet with mod assist of 1-2. Her Am Pac is 11 indicating the need for short term rehab to gain independence, monitor her functional activity and decrease her bruden of care. She remains confused but does follow directions. She is slowly improving with her function
--- NOTE | 2020-11-02 12:01 | NUR ---
PT SITTING IN CHAIR. NO DISTRESS NOTED. NO NEEDS AT THIS TIME. CALL LIGHT LEFT WITHIN REACH.
[2020-11-02 15:00] VITALS: BP 110/77
--- NOTE | 2020-11-02 15:37 | NUR ---
PT SLEEPING IN RECLINER. NO DISTRESS NOTED. O2 VIA NC IN PLACE. CALL LIGHT LEFT WITHIN REACH.
[2020-11-02 19:00] VITALS: BP 142/71
--- NOTE | 2020-11-02 21:15 | NUR ---
ASSESSMENT COMPLETED AND PM MEDICATIONS ADMINISTERED AT THIS TIME. IV SITE FLUSHED PATENT/SITE APPEARS HEALTHY. PT LOCX3, APPEARS SLIGHTLY CONFUSED, HARD OF HEARING SEEMS TO AFFECT HER UNDERSTANDING WHAT IS GOING ON AT TIMES. PT DID NOT HAVE HER OXYGEN ON, 02 SAT 85% ON RA. OXYGEN NC REPLACED AND HER SAT LEVELS PRIOR TO LEAVING ROOM WERE 92% ON 3L. WILL CONTINUE TO MONITOR. CALL LIGHT AT SIDE AND PT ENCOURAGED TO CALL NEEDS ARISE, SHE VERBALIZED UNDERSTANDING AT THIS TIME. DENIES ANY OTHER NEEDS.
[2020-11-03] VITALS: BP 140/79
--- NOTE | 2020-11-03 00:50 | NUR ---
PT IS SLEEPING, NO S/O DISTRESS NOTED AT THIS TIME. CALL LIGHT AT SIDE, LIGHTS DIMMED FOR COMFORT.
[2020-11-03 04:54] VITALS: BP 133/54
[2020-11-03 05:46] LABS: HEMATOCRIT 29.3 % (37.0-47.0); HEMOGLOBIN 9.2 g/dl (12.0-16.0); IMMATURE GRANULOCYTES 0.6 % (0.0-5.0); MEAN CORPUSCULAR HGB 31.1 pG CALC (26.0-32.0); MEAN CORPUSCULAR HGB CONC 31.4 g/dL CAL (32.0-36.0); NEUT# 5.99 thou/uL (2.00-7.15); RED BLOOD COUNT 2.96 mill/uL (4.20-5.60); RED CELL DISTRI WIDTH 14.1 % (11.5-15.5)
[2020-11-03 06:19] LABS: ALBUMIN 2.6 g/dL (3.2-5.0); ALKALINE PHOSPHATASE 36 u/l (38-126); ANION GAP 7 (6-22 (CALC)); BILIRUBIN, TOTAL 0.6 mg/dL (0.0-1.4); BUN 26 mg/dL (8-23); BUN/CREATININE RATIO 26 (12-20 (CALC)); CARBON DIOXIDE 30 mmol/l (22-30); CHLORIDE 105 mmol/l (95-108); GFR 53 ML/MIN (>=60 (CALC)); GFR FOR AFR.AMER. > 60 ML/MIN (>=60 (CALC)); POTASSIUM 4.8 mmol/l (3.5-5.1); SGOT/AST 50 u/l (9-36); SODIUM 136 mmol/l (137-146)
--- NOTE | 2020-11-03 09:20 | NUR ---
DR LOPEZ AND Rhett ANNE APRN AT BEDSIDE DISCUSSING POC
[2020-11-03 09:29] VITALS: BP 116/63
--- NOTE | 2020-11-03 09:29 | NUR ---
PT SITTING IN BED. A&O X2, REORIENTATION NEEDED FOR CURRENT TIME. PT DENIES ANY PAIN AT THIS TIME. O2 VIA NC @3L IN PLACE, O2 SUSTAINING 96%. O2 TITRATED DOWN TO 2L, PT CURRENTLY SUSTAINING 95-96%. CLEAR/DIMINISHED BREATH SOUNDS HEARD UPON AUSCULTATION. PETROLEUM REFINING FIRER IN PLACE. MIRALAX, SCHEDULED STOOL SOFTENER GIVEN TO ASSIST WITH BM. WITH LAST BM REPORTED/DOCUMENTED ON 10/29/20. DR LOPEZ AND Rhett ANNE APRN NOTIFIED. PUREWICK IN PLACE, CONNECTED TO SUCTION. ASSESSMENT COMPLETED. DISCUSSED POC. CALL LIGHT LEFT WITHIN REACH.
[2020-11-03 11:25] VITALS: BP 115/65
--- NOTE | 2020-11-03 13:35 | NUR ---
PT SLEEPING IN BED. NO DISTRESS NOTED. CALL LIGHT LEFT WITHIN REACH.
[2020-11-03 15:17] VITALS: BP 126/59
--- NOTE | 2020-11-03 17:05 | NUR ---
PT SLEEPING IN BED. NO DISTRESS NOTED. CALL LIGHT LEFT WITHIN REACH.
[2020-11-03 19:12] VITALS: BP 131/76
--- NOTE | 2020-11-03 20:13 | NUR ---
PT MEDICATED ORDERS PROVIDE AND ASSESSMENT COMPLETED AT THIS TIME. PT REPORTS FEELING OKAY, JUST STATES SHE WANTS TO GO TO SLEEP. SHE IS SMILING AND APPEARS IN GOOD SPIRITS. NO DISTRESS NOTED. PT IS CONFIRMED DRY AND CLEAN AT THIS TIME WITH PUREWICK IN PLACE SET TO CONTINUOUS LOW SUCTION WITH DARK YELLOW CLEAR URINE OUTPUT TO CANISTER. ASSISTED PT REPOSITIONING IN BED FOR COMFORT AND CALL LIGHT PLACED ON BST WITHIN REACH. I ENCOURAGED HER TO CALL NEEDS ARISE, SHE VERBALIZED UNDERSTANDING.
[2020-11-04] VITALS: BP 125/60
--- NOTE | 2020-11-04 00:13 | NUR ---
PT WAS SLEEPING, V/S ASSESSED AT THIS TIME. NO S/O DISTRESS NOTED. WILL CONTINUE TO MONITOR. PUREWICK PLACEMENT CONFIRMED AND CLEAR DARK YELLOW URINE OUTPUT TO CONTINUOUS SUCTION. PT REORIENTED TO CALL LIGHT PLACEMENT AND USAGE, VERBALIZED UNDERSTANDING.
--- NOTE | 2020-11-04 03:02 | NUR ---
pt appears to be sleeping, did not awake to my entering the room. call light at side.
[2020-11-04 04:00] VITALS: BP 122/53
--- NOTE | 2020-11-04 05:39 | NUR ---
PT SLEEPING, NO S/O DISTRESS NOTED AT THIS TIME. 02NC ON 2L 96-100% PUREWICK IN PLACE TO LOW SUCTION. CALL LIGHT AT SIDE AND IS W/IN REACH.
--- NOTE | 2020-11-04 06:56 | NUR ---
REPORT REC FROM MATTHIAS KNOWLES
[2020-11-04 08:14] VITALS: BP 150/67
--- NOTE | 2020-11-04 08:58 | NUR ---
DR LOPEZ AND Rhett ANNE APRN AT BEDSIDE DISCUSSING POC
[2020-11-04 11:39] VITALS: BP 142/74
--- NOTE | 2020-11-04 12:52 | NUR ---
PT SITTING IN CHAIR, NO DISTRESS. CALL LIGHT IN REACH.
--- NOTE | 2020-11-04 13:15 | NUR ---
PT AND UPDATED ON D/C PLAN TO REHAB. ASSISTED PT WITH THE HELP OF PING ALVARES TO GET PT READY PRIOR TO ARRIVAL OF TRANSPORT. CALL LIGHT LEFT WITHIN REACH.
--- NOTE | 2020-11-04 15:58 | NUR ---
[facility] AT [facility]
--- NOTE | 2020-11-04 16:04 | NUR ---
Discharge instructions given. Patient verbalizes understanding of same. [facility] All belongings sent with pt.
--- NOTE | 2020-11-04 16:32 | NUR ---
REPORT GIVEN TO REE SELF HUNTING AND FISHING GUIDE
== END 2020-11-04 16:03 | DRG 177 ==
LOC: ED 11:10 → ED-I 13:06 → ED 13:16 → MS2 13:17 → ICU 10-17 10:13 → MS2 10-29 20:30
PROVIDERS: Emergency Medicine; Nurse Practitioner; Nurse Practitioner Family; Physician Assistant; ADMIT Internal Medicine; ATTEND Internal Medicine
PROC: XW033E5 Introduction of Remdesivir Anti-infective into Peripheral Vein, Percutaneous Approach, New Technology Group 5 (ICD-10-PCS; principal; 2020-10-18)
DX: U07.1 COVID-19 (principal); J12.82 Pneumonia due to coronavirus disease 2019; J96.01 Acute respiratory failure with hypoxia; J98.11 Atelectasis; N17.9 Acute kidney failure, unspecified; F05 Delirium due to known physiological condition; E87.0 Hyperosmolality and hypernatremia; E86.0 Dehydration; I48.0 Paroxysmal atrial fibrillation; I11.9 Hypertensive heart disease without heart failure; J43.9 Emphysema, unspecified; J84.10 Pulmonary fibrosis, unspecified; F03.90 Unspecified dementia, unspecified severity, without behavioral disturbance, psychotic disturbance, mood disturbance, and anxiety; E78.5 Hyperlipidemia, unspecified; D64.9 Anemia, unspecified; F41.9 Anxiety disorder, unspecified; Z78.1 Physical restraint status; Z79.82 Long term (current) use of aspirin; Z79.899 Other long term (current) drug therapy; Z95.5 Presence of coronary angioplasty implant and graft; Z95.820 Peripheral vascular angioplasty status with implants and grafts
CPT/HCPCS: J1650; J2060; J3475; Q9967; S0164; S0166

== ENCOUNTER 2022-04-14 11:25 | Emergency (ER) | payer MEDICARE ==
[~2022-04-14] VITALS: Ht 162.6 cm; Wt 72.2 kg
[~2022-04-14 11:25] MED LIST changes: +ANORO ELLIPTA 61 AER IN; +ATORVASTATIN CA40 MG PO; +CARDIZEM CD240 MG PO; +CLONIDINE0.1 MG PO; +DOXYCYCL HYC100 MG PO; +FERRAPLUS 90 PO; +LISINOPRIL20 MG PO; +MAG OXIDE400 MG PO; +NIFEDIPINE60 MG PO; +OXY1; +PANTOPRAZOLE SO40 M1 PO; +PRIMROSE OI1 PO; +PROAIR HFA108 MCG/AC IN; +QUETIAPINE FUMA25 MG PO; +SPIRIVA RE1.25 MCG/A IN; +SPIRONOLACTONE25 MG PO; +VITAMIN B-12500 MCG PO; +[UNRECOGNIZED DRUG - OTHER] PO
[2022-04-14 11:32] VITALS: BP 135/60
[2022-04-14 12:00] VITALS: BP 121/54
[2022-04-14 12:31] VITALS: BP 140/55
[2022-04-14 13:01] VITALS: BP 144/60
[2022-04-14 13:31] VITALS: BP 149/70
[2022-04-14] MEDS ORDERED: NAPROXEN DR375 M1 PO (13:33)
[2022-04-14 13:41] VITALS: BP 149/70
== END 2022-04-14 13:58 | disposition home or self-care (01) ==
LOC: ED 11:25
DX: S93.401A Sprain of unspecified ligament of right ankle, initial encounter (principal); I10 Essential (primary) hypertension; I48.20 Chronic atrial fibrillation, unspecified; W01.0XXA Fall on same level from slipping, tripping and stumbling without subsequent striking against object, initial encounter; Y92.59 Other trade areas as the place of occurrence of the external cause; Z95.820 Peripheral vascular angioplasty status with implants and grafts